=== PATIENT | male | born 1945 | race Caucasian/White ===

== ENCOUNTER 2019-12-22 09:07 | Outpatient (CLI) | payer MEDICARE, OTHER, SELFPAY ==
--- NOTE | ~2019-12-22 | CT_ITS ---
EXAMINATION: CT chest wo con DATE: 12/22/2019 09:33 INDICATION: Lung nodule TECHNIQUE: Computed tomography (CT) of the chest was performed without intravenous contrast. The dose -length product (DLP) was 280.27 mGy-cm. Automated exposure control and iterative reconstruction tech [employer] were employed. COMPARISON: 03/27/2019 FINDINGS: The previously described pleural-based nodule of the left upper lobe is no longer evident, consistent with resolved infection or inflammation. There is moderate emphysema. Calcified pleural pl aques are again noted. There is associated rounded atelectasis posteriorly in the left lower lobe. Th ere is no pleural effusion or pneumothorax. No pathologically enlarged thoracic lymph nodes are ident ified. The heart size is normal. There is calcified coronary artery atherosclerosis. Mild bilateral g ynecomastia is noted. The gallbladder is surgically absent. There is thoracic levocurvature and moder ate spondylosis. IMPRESSION: 1. Resolution of the previously described left upper lobe nodule, consistent with resolved infection/ inflammation. 2. 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 3. Moderate emphysema. Reviewed, dictated and finalized at location A. IMPRESSION: 1. Resolution of the previously described left upper lobe nodule, consistent wi th resolved infection/inflammation. 2. 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 3. Moderate emphysema.
== END 2019-12-22 09:08 | disposition home or self-care (01) ==
PROVIDERS: PCP Family Medicine; Visit Provider Family Medicine
DX: R91.1 Solitary pulmonary nodule (principal); J43.9 Emphysema, unspecified; R91.8 Other nonspecific abnormal finding of lung field
CPT/HCPCS: 71250

== ENCOUNTER 2020-03-30 10:49 | Outpatient (CLI) | payer MEDICARE, OTHER, SELFPAY ==
--- NOTE | 2020-03-30 12:00 | NEURO_ITS ---
Impression: # Complains of hand weakness. # Not enough to make a diagnosis of Carpal Tunnel Syndrome. # No ulnar neuropathy. # Normal needle/EMG # Clinical correlation recommended; Higher involvement such as cervical spondylosis needs to be ruled out. Nerve Conduction Studies Anti Sensory Summary Table Stim Site NR Peak (ms) P-T Amp (?V) Site1 Site2 Delta-P (ms) Dist (cm) Abelardo (m/s) Left Median Anti Sensory (2-3nd Digit) Wrist 3.8 32.8 Wrist 2-3nd Digit 3.8 14.0 37 Wrist 3.8 27.3 Wrist 2-3nd Digit 3.8 14.0 37 Right Median Anti Sensory (2-3nd Digit) Wrist 3.5 3.9 Wrist 2-3nd Digit 3.5 14.0 40 Wrist 4.0 34.4 Wrist 2-3nd Digit 3.5 14.0 40 Left Radial Anti Sensory (Base 1st Digit) Wrist 2.8 7.2 Wrist Base 1st Digit 2.8 0.0 Right Radial Anti Sensory (Base 1st Digit) Wrist 3.6 14.8 Wrist Base 1st Digit 3.6 0.0 Left Ulnar Anti Sensory (5th Digit) Wrist 3.1 33.9 Wrist 5th Digit 3.1 14.0 45 Right Ulnar Anti Sensory (5th Digit) Wrist 3.4 11.1 Wrist 5th Digit 3.4 14.0 41 Motor Summary Table Stim Site NR Onset (ms) O-P Amp (mV) Site1 Site2 Delta-0 (ms) Dist (cm) Abelardo (m/s) Left Median Motor (Abd Poll Brev) Wrist 3.5 6.0 Elbow Wrist 6.0 31.0 52 Elbow 9.5 2.3 Right Median Motor (Abd Poll Brev) Wrist 3.4 3.7 Elbow Wrist 6.1 30.0 49 Elbow 9.5 3.7 Left Ulnar Motor (Abd Dig Minimi) Wrist 3.2 4.8 A Elbow Wrist 5.9 31.0 53 A Elbow 9.1 3.5 Right Ulnar Motor (Abd Dig Minimi) Wrist 3.0 5.2 A Elbow Wrist 6.3 32.0 51 A Elbow 9.3 4.8 F Wave Studies NR F-Lat (ms) L-R F-Lat (ms) Left Median (Mrkrs) (Abd Poll Brev) 32.73 0.47 Right Median (Mrkrs) (Abd Poll Brev) 32.27 0.47 Left Ulnar (Mrkrs) (Abd Dig Min) 31.83 1.98 Right Ulnar (Mrkrs) (Abd Dig Min) 33.81 1.98 EMG Side Muscle Nerve Root Ins Act Fibs Amp Dur Recrt Comment Right 1stDorInt Ulnar C8-T1 Nml Nml Nml Nml Nml Right Ext Indicis Radial (Post Int) C7-8 Nml Nml Nml Nml Nml Right Ext Digitorum Radial (Post Int) C7-8 Nml Nml Nml Nml Nml Right BrachioRad Radial C5-6 Nml Nml Nml Nml Nml Right PronatorTeres Median C6-7 Nml Nml Nml Nml Nml Right Abd Poll Brev Median C8-T1 Nml Nml Nml Nml Nml Left 1stDorInt Ulnar C8-T1 Nml Nml Nml Nml Nml Left Ext Indicis Radial (Post Int) C7-8 Nml Nml Nml Nml Nml Left Ext Digitorum Radial (Post Int) C7-8 Nml Nml Nml Nml Nml Left BrachioRad Radial C5-6 Nml Nml Nml Nml Nml Left PronatorTeres Median C6-7 Nml Nml Nml Nml Nml Left Abd Poll Brev Median C8-T1 Nml Nml Nml Nml Nml MTDD
== END 2020-03-30 10:50 | disposition home or self-care (01) ==
PROVIDERS: Visit Provider Psychiatry & Neurology Neurology
DX: G56.02 Carpal tunnel syndrome, left upper limb (principal)
CPT/HCPCS: 95886; 95911

== ENCOUNTER 2020-04-29 15:37 | Emergency (ER) | payer MEDICARE, OTHER, SELFPAY ==
--- NOTE | ~2020-04-29 | CT_ITS ---
EXAMINATION: CT brain wo con INDICATION: Increasing confusion, transient alteration of awareness COMPARISON: None TECHNIQUE: Standard unenhanced head CT. The dose-length product (DLP) was 605.33 mGy-cm. The mA was a djusted according to patient size. Iterative reconstruction technique was employed. FINDINGS: There is no acute intraparenchymal hemorrhage. No evidence of mass lesion. No evidence of a cute infarction. There is mild periventricular and subcortical hypodensity probably related to small vessel ischemic disease. There is mild prominence of the sulci and ventricles related to cerebral atr ophy. Intracranial calcified cerebral atherosclerosis is noted. There are no extra-axial collections. There is no mass effect or midline shift. Changes in the globes are likely from ocular lens surgery. The visualized sinuses and mastoid air cells are well aerated. IMPRESSION: 1. No acute intracranial abnormality. 2. Age related findings. Reviewed, dictated and finalized at location A. TRONIC ASSEMBLER GROUP LEADER
--- NOTE | ~2020-04-29 | XR_ITS ---
EXAMINATION: XR chest 1V portable INDICATION: Transient alteration of awareness TECHNIQUE: Portable AP chest at 1701 hours COMPARISON: 11/10/2018 FINDINGS: The lungs are free of acute opacities. Ill-defined densities projecting in the left hemitho rax are consistent with calcified pleural plaques seen on prior cross-sectional imaging. There is no pleural effusion or pneumothorax. The cardiomediastinal silhouette is normal. IMPRESSION: 1. No acute cardiopulmonary abnormality. Reviewed, dictated and finalized at location A. MDS COORDINATOR
[2020-04-29 15:44] VITALS: BP 173/78; PULSE 84; RESP 18; TEMP 36.9; O2SAT 98
--- NOTE | 2020-04-29 15:44 | ECG_ITS ---
Measurements Intervals [place] Rate: 81 P: 75 MN: 163 QRS: 70 QRSD: 104 T: 81 QT: 399 QTc: 463 Interpretive Statements SINUS RHYTHM VENTRICULAR PREMATURE COMPLEX POSSIBLE LEFT ATRIAL ENLARGEMENT NONSPECIFIC ST & T-WAVE ABNORMALITY- DIFFUSE LEADS BASELINE ARTIFACT- I, III, AVR, AVL, V6 BORDERLINE ECG Electronically Signed On 04-29-2020 16:15:49 IC DESIGNER CUSTOM by Olman Brizuela D.O.
[2020-04-29 16:15] LABS: Basophils Percent Auto 0.2 % (0.2-1.2); Eosinophils Percent Auto 0.2 % (0-4.4); Hematocrit 33.7 % (42.0-52.0); Hemoglobin 11.3 g/dL (14.0-18.0); Immature Granulocyte Absolute 0.01 K/mm3 (0.00-0.031); Immature Granulocyte Percent A 0.2 % (0-0.5); Lymphocytes Percent Auto 23.4 % (18.3-44.2); Mean Corpuscular HGB Conc 33.5 g/dl (32-36); Mean Corpuscular Hemoglobin 31.6 pg (26-34); Mean Corpuscular Volume 94.1 fl (80-100); Mean Platelet Volume 9.3 fl (7.4-10.4); Monocytes Absolute Auto 0.6 K/mm3 (0.1-0.6); Monocytes Percent Auto 13.4 % (2.6-8.5); Neutrophils Absolute Auto 2.9 K/mm3 (1.3-6.7); Neutrophils Percent Auto 62.6 % (45.5-73.1); Platelet Count Result 232 k/mm3 (150-375); Red Blood Count 3.58 M/mm3 (4.6-6.20); White Blood Count 4.7 K/mm3 (4.5-10.0)
[2020-04-29 16:32] LABS: Alanine Aminotransferase 40 U/L (4-50); Albumin Level 3.7 g/dL (3.5-5.1); Alkaline Phosphatase 147 U/L (38-126); Anion Gap 8 mmol/L (8-16); Aspartate Amino Transferase 63 U/L (17-59); Bilirubin,Total 0.4 mg/dL (0.2-1.3); Blood Urea Nitrogen 19 mg/dL (9-20); Calcium 8.6 mg/dL (8.4-10.2); Carbon Dioxide 25 mmol/L (22-30); Chloride 102 mmol/L (98-107); Estimated CRCL calculation 82 ml/min; Estimated Glomerular Filt Rate > 60; Glucose 104 mg/dL (75-110); Potassium 3.7 mmol/L (3.4-5.0); Sodium 135 mmol/L (137-145)
--- NOTE | 2020-04-29 17:00 | ED.AMS ---
HPI - Altered Mental Status General Chief Complaint: Altered Mental Status Stated Complaint: confusion Time Seen by Provider: 04/29/20 16:09 Source: patient and family Mode of arrival: ambulatory Limitations: no limitations History of Present Illness HPI narrative: Patient is a 74-year-old male who presents with noting that over the recent weeks he has been having periods of dizziness and slightly more confused patient was advised to discontinue his carbo levodopa which she takes for his Parkinson's and is followed by neurology patient has been off of this for the last 4 days patient denies any recent illness injury or trauma on arrival is in the room in no distress and is alert and oriented x3. Patient denying any pain Related Data Home Medications Medication Instructions Recorded Confirmed albuterol sulfate 90 mcg/actuation See Rx Instructions .ROUTE .COMPLEX 04/18/20 aerosol inhaler atorvastatin 10 mg tablet 10 mg PO DAILY 04/18/20 carbidopa 25 mg-levodopa 100 mg 1 tablet PO TID 04/18/20 tablet linaclotide 145 mcg capsule 145 mcg PO DAILY 04/18/20 mesalamine 0.375 gram See Rx Instructions PO QAM 04/18/20 capsule,extended release 24 hr Allergies Allergy/AdvReac Type Severity Reaction Status Date / Time Penicillins Allergy Intermediate UNKNOWN Verified 04/29/20 17:32 Review of Systems Review of Systems: All systems reviewed & are unremarkable except as noted in HPI and below PMFSH Past Medical History Medical History (Updated 04/29/20 @ 19:07 by Leonides Lofton PA-C) Chicken pox Parkinson disease Pneumonia Screening PSA (prostate specific antigen) Surgical History Surgical History H/O right heart catheterization History of cholecystectomy Family History Family History Father , 68 Stomach cancer Mother , 90 No problems noted. Social History Social History Smoking packs per day: 1.0 Smoking cigarettes per day: 20.0 Smoking status: Former smoker Smoking end date: 03/18/04 Alcohol intake: current Substance use: never Substance use type: does not use Gender identity (if verbalized by the patient): Male Exam Narrative: Exam Narrative: GENERAL: Well-appearing, well-nourished, and in no acute distress. HEAD: Normocephalic, atraumatic. EYES: PERRLA and EOMI. ENT: Nares clear, no rhinorrhea or epistaxis. Mucous membranes moist. CHEST: Clear to auscultation. No respiratory distress. No wheezes rales or rhonchi HEART: Regular rate and rhythm. No murmur heard. Normal peripheral pulses. ABDOMEN: Soft, nontender, nondistended, EXTREMITIES: Normal range of motion. No edema. SKIN: Warm, dry, no rash. NEURO: No focal deficits. Alert and oriented x3. Cranial nerves II through XII grossly intact. Normal speech. Able to ambulate without difficulty PSYCH: Normal mood and affect. Course Course Emergency Course: Patient aware of case findings treatment plan diagnosis evaluated in the emergency department will be discharged home and feels comfortable to go home as does his discussion was made with neurology as this likely could be related to his medication changes ablate patient has been advised by neurology to contact him on Saturday for follow-up in clinic Consultations Consultation #1: Discussed case with neurologist Dr. Johnson who will follow with the patient on Saturday Date: 04/29/20 Time: 19:07 Vital Signs Vital signs: Vital Signs Temperature 98.4 F 04/29/20 15:44 Pulse Rate 84 04/29/20 15:44 Respiratory Rate 18 04/29/20 15:44 Blood Pressure 173/78 H 04/29/20 15:44 Pulse Oximetry 98 04/29/20 15:44 Temperature 98.4 F 04/29/20 15:44 Pulse Rate 84 04/29/20 15:44 Respiratory Rate 18 04/29/20 15:44 Blood Pressure 173/78 H 04/29/20 15:44 Pulse O
[2020-04-29] MEDS: SODIUM CHLORIDE 0.9% IV 500 ML 999 ML IV CONT (17:18)
[2020-04-29 18:07] LABS: Add Urine Microscopic? YES; Appearance Urine Clear (Clear); Bacteria Urine Trace /hpf; Bilirubin Urine Negative (Negative); Blood Urine 2+ (Negative); Color Urine Yellow (Yellow); Glucose Urine UA Negative (Negative); Ketones Urine Trace mg/dL (Negative); Leukocyte Esterase Ur Negative LEU/UL (Negative); Mucus Urine Rare /lpf; Nitrate Urine Negative (Negative); Protein Urine 1+ mg/dL (Negative); RBC Urine >75 /hpf (0-2); Specific Grav Ur 1.029 (1.001-1.035); Squamous Epithelial Cell Urine Rare /hpf (Few)
[2020-04-29 19:39] VITALS: BP 125/90; PULSE 90; RESP 16
== END 2020-04-29 19:39 | disposition home or self-care (01) ==
PROVIDERS: Emergency Provider Emergency Medicine; PCP Emergency Medicine
DX: R41.0 Disorientation, unspecified (principal); R31.9 Hematuria, unspecified; G20 Parkinson's disease; Z87.891 Personal history of nicotine dependence; I49.3 Ventricular premature depolarization; R94.31 Abnormal electrocardiogram [ECG] [EKG]
CPT/HCPCS: 36415; 70450; 71045; 80053; 81001; 85025; 93005; 96360; 99284; J7040

== ENCOUNTER 2020-05-01 15:21 | Inpatient (IN) | payer MEDICARE, OTHER, SELFPAY ==
[2020-05-01] VITALS (19 sets, daily range): BP systolic 140–168; BP diastolic 71–110; PULSE 64–98; RESP 13–22; TEMP 36.4–36.8; O2SAT 94–99; BMI 26.3
--- NOTE | ~2020-05-01 | XR_ITS ---
EXAMINATION: XR ankle LT min 3V DATE: 05/01/2020 18:10 INDICATION: Left ankle swelling TECHNIQUE: Anteroposterior, oblique, mortise, and lateral views of the left ankle were obtained. COMPARISON: None. FINDINGS: Alignment is normal. No fracture. Joint spaces are well maintained. No ankle joint effusion. Small Achilles calcaneal spur. Mild soft tissue swelling along the anteromedial aspect of the left ankle. IMPRESSION: 1. No acute osseous abnormality. Reviewed, dictated and finalized at location A.
--- NOTE | ~2020-05-01 | US_ITS ---
EXAMINATION: US venous doppler [facility] DATE: 05/02/2020 09:51 INDICATION: Left lower limb swelling TECHNIQUE: Cain scale images without and with compression and Doppler images of the left lower extrem ity veins were obtained. COMPARISON: None FINDINGS: The left common femoral vein, profunda femoral vein, femoral vein, popliteal vein, peroneal trunk, posterior tibial veins, and greater saphenous vein are patent. IMPRESSION: 1. Patent left lower extremity veins. No evidence of deep venous thrombosis. Reviewed, dictated and finalized at location A. OYEE BENEFITS COORDINATOR
--- NOTE | ~2020-05-01 | CT_ITS ---
EXAMINATION: CTA chest PE protocol DATE: 05/01/2020 16:48 INDICATION: Shortness of breath TECHNIQUE: Computed tomography (CT) pulmonary angiogram of the chest was performed with 100 mL Omnipa que-350 intravenous contrast. Additional 3D reconstructions utilizing coronal maximum intensity proje ction (MIP) were performed. Automated exposure control and iterative reconstruction technique were em ployed. The dose-length product was 447.27 mGy-cm. COMPARISON: Chest CT dated 12/22/2019 FINDINGS: Good contrast opacification of the pulmonary arteries. There is moderate streak artifact from dense c ontrast in the superior vena cava and right atrium. There are scattered motion artifact mild to moder ate knee mid and upper lung zones and severe at the lung bases where it significantly decreases sensi tivity in the segmental and subsegmental pulmonary arteries. No definitive pulmonary embolism. Mild t o moderate bilateral emphysema. Bilateral calcified pleural plaques suggestive of prior asbestos expo sure. Chronic peripheral curved bands of opacity with architectural distortion in the dependent left lower lobe consistent with round atelectasis. There are new groundglass opacities in the lingula, rig ht lower lobe and most prominently in the basilar segments of the left lower lobe. No pleural effusio n or pneumothorax. A few scattered small calcified pulmonary nodules along with calcified calcified r ight bronchial lymph nodes consistent with old granulomatous disease. Consistent with old granulomato us disease. Heart size is normal. Atherosclerotic coronary artery calcifications. No pericardial effu diana. Aortic valve calcification. Thoracic aorta is normal in caliber with no dissection. There is approximately 4.3 x 3.7 x 3.4 cm soft tissue density mass with ill-defined margins filling t he AP window. Left hilar lymphadenopathy including a 2.7 x 1.9 cm lymph node. There is also been incr ease in size of a subcarinal lymph node previously measuring 9 mm AP, currently 1.7 cm AP. Soft tissu e density/lymphadenopathy at the mediastinum and left hilum appear increased in size since the prior study. Significantly increased in size since the prior study and raises concern for metastatic diseas e. Cholecystectomy clips at the gallbladder fossa. Mild bilateral gynecomastia. Upper thoracic levosc oliosis. There are bridging osteophytes at multiple levels in the spine, consistent with diffuse idio pathic skeletal hyperostosis (DISH). IMPRESSION: 1. No pulmonary embolism. Evaluation significantly limited in the basilar segmental and subsegmental pulmonary arteries to primarily to motion. 2. New groundglass opacities in the lingula, right lower lobe and most prominently with patchy appear ance in the left lower lobe raising concern for pneumonia with differential including COVID pneumonia . Differential includes atelectasis or mild pulmonary edema. 3. Enlarging mass likely conglomeration of lymph nodes in the AP window with poorly defined margins a s well as enlarging left hilar and subcarinal lymphadenopathy which raises concern for metastatic dis ease of indeterminate primary. When clinically improved could consider PET/CT to assess for possible primary lesion or other lesions suspicious for metastatic disease more minimal to percutaneous biopsy . 4. Mild to moderate emphysema. 5. Bilateral calcified pleural plaques consistent with prior asbestos exposure with chronic round ate lectasis at the periphery of the left lower lobe. Reviewed, dictated and finalized at location A. PLANT ENGINEER IMPRESSION: 1. No pulmonary embolism. Evaluation significantly limited in the basilar segme ntal and subsegmental pulmonary arteries to primarily to motion. 2. New groundglass opacities in the lingula, right lower lobe and most prominen
--- NOTE | 2020-05-01 15:42 | ED.GENADULT ---
HPI - General Adult General Chief complaint: Altered Mental Status Stated complaint: ongoing confusion Time Seen by Provider: 05/01/20 15:26 Source: patient, family and old records reviewed Mode of arrival: ambulatory Limitations: no limitations History of Present Illness HPI narrative: Patient is a 74-year-old male who returns to emergency department for evaluation of continued unsteadiness that has been present now for several days patient seen yesterday in the emergency department discharged home returns with the patient noted that he was uncomfortable throughout the night and has now noticed that he has left lower extremity swelling patient on arrival is in the room no complaints denies any recent injury or trauma. Patient was uncomfortable through the night complained of pain across the upper back is currently not complaining of this pain. Related Data Home Medications Medication Instructions Recorded Confirmed albuterol sulfate 90 mcg/actuation See Rx Instructions .ROUTE .COMPLEX 04/18/20 aerosol inhaler atorvastatin 10 mg tablet 10 mg PO DAILY 04/18/20 carbidopa 25 mg-levodopa 100 mg 1 tablet PO TID 04/18/20 tablet linaclotide 145 mcg capsule 145 mcg PO DAILY 04/18/20 mesalamine 0.375 gram See Rx Instructions PO QAM 04/18/20 capsule,extended release 24 hr Allergies Allergy/AdvReac Type Severity Reaction Status Date / Time Penicillins Allergy Intermediate UNKNOWN Verified 05/01/20 15:29 Review of Systems Review of Systems: All systems reviewed & are unremarkable except as noted in HPI and below PMFSH Past Medical History Medical History Chicken pox Parkinson disease Pneumonia Screening PSA (prostate specific antigen) Surgical History Surgical History H/O right heart catheterization History of cholecystectomy Family History Family History Father , 68 Stomach cancer Mother , 90 No problems noted. Social History Social History Smoking packs per day: 1.0 Smoking cigarettes per day: 20.0 Smoking status: Former smoker Smoking end date: 03/18/04 Alcohol intake: current Substance use: never Substance use type: does not use Gender identity (if verbalized by the patient): Male Exam Narrative: Exam Narrative: GENERAL: Well-appearing, well-nourished, and in no acute distress. HEAD: Normocephalic, atraumatic. EYES: PERRLA and EOMI. ENT: Nares clear, no rhinorrhea or epistaxis. Mucous membranes moist. NECK: Supple. No adenopathy or masses. CHEST: Clear to auscultation. No respiratory distress. No wheezes rales or rhonchi HEART: Regular rate and rhythm. No murmur heard. Normal peripheral pulses. ABDOMEN: Soft, nontender, nondistended EXTREMITIES: Normal range of motion. 2+ edema of the left lower extremity at the level of the ankle no erythema or other abnormalities no calf tenderness SKIN: Warm, dry, no rash. NEURO: No focal deficits. Alert and oriented x3. Unsteady gait. Cranial nerves II through XII grossly intact PSYCH: Normal mood and affect. Course Course Emergency Course: Patient presented with vague complaints of worsening confusion over the last week unsteady gait also complaining of pain in the upper back at home not complaining of this in the ER patient was evaluated found to have what appears to be pneumonialike findings on his CAT scan no pulmonary embolus patient will be placed in hospital to be evaluated by his neurologist managed by the hospitalist team patient at this time felt appropriate for inpatient evaluation given his multiple visits patient in the room in no distress at this time will be tested for Covid given the CT findings will be treated for pneumonia in the meantime Consultations Consultation #1:
--- NOTE | 2020-05-01 16:00 | ECG_ITS ---
Measurements Intervals [place] Rate: 82 P: 88 UT: 178 QRS: 85 QRSD: 113 T: 105 QT: 407 QTc: 478 Interpretive Statements SINUS RHYTHM INTRAVENTRICULAR CONDUCTION DELAY BORDERLINE ST-T WAVE ABNORMALITY- ANTEROLAT/INF LEADS BASELINE ARTIFACT- I, III, AVR, AVL, AVF, V1-V6 BORDERLINE ECG Electronically Signed On 05-01-2020 19:56:39 FRYER LINE HELPER by Olman Brizuela D.O.
[2020-05-01 16:14] LABS: Basophils Percent Auto 0.2 % (0.2-1.2); Eosinophils Percent Auto 0.6 % (0-4.4); Hematocrit 34.8 % (42.0-52.0); Hemoglobin 11.6 g/dL (14.0-18.0); Immature Granulocyte Absolute 0.02 K/mm3 (0.00-0.031); Immature Granulocyte Percent A 0.4 % (0-0.5); Lymphocytes Absolute Auto 1.45 K/mm3 (0.9-3.2); Lymphocytes Percent Auto 28.4 % (18.3-44.2); Mean Corpuscular HGB Conc 33.3 g/dl (32-36); Mean Corpuscular Hemoglobin 31.6 pg (26-34); Mean Corpuscular Volume 94.8 fl (80-100); Mean Platelet Volume 9.6 fl (7.4-10.4); Monocytes Absolute Auto 0.7 K/mm3 (0.1-0.6); Monocytes Percent Auto 14.3 % (2.6-8.5); Neutrophils Absolute Auto 2.9 K/mm3 (1.3-6.7); Neutrophils Percent Auto 56.1 % (45.5-73.1); Platelet Count Result 269 k/mm3 (150-375); Red Blood Count 3.67 M/mm3 (4.6-6.20); Red Cell Distribution Width 13.2 % (11.5-14.5); White Blood Count 5.1 K/mm3 (4.5-10.0)
[2020-05-01 16:18] LABS: Add Urine Microscopic? YES; Appearance Urine Clear (Clear); Bilirubin Urine Negative (Negative); Blood Urine Negative (Negative); Color Urine Yellow (Yellow); Glucose Urine UA Negative (Negative); Ketones Urine Negative (Negative); Leukocyte Esterase Ur Negative LEU/UL (Negative); Mucus Urine Rare /lpf; Nitrate Urine Negative (Negative); Protein Urine 1+ mg/dL (Negative); RBC Urine 21-50 /hpf (0-2); Specific Grav Ur 1.025 (1.001-1.035); Squamous Epithelial Cell Urine Rare /hpf (Few)
[2020-05-01 16:23] LABS: INR 0.9; Prothrombin Time 12.4 Seconds (11.1-14.7)
[2020-05-01 16:24] LABS: Partial Thromboplastin Time 35.5 SECONDS (22.3-36.8)
[2020-05-01 16:26] LABS: D Dimer 0.82 ug/mL (<0.48)
[2020-05-01 16:28] LABS: Alanine Aminotransferase 45 U/L (4-50); Albumin Level 3.8 g/dL (3.5-5.1); Alkaline Phosphatase 164 U/L (38-126); Anion Gap 6 mmol/L (8-16); Aspartate Amino Transferase 61 U/L (17-59); Bilirubin,Total 0.4 mg/dL (0.2-1.3); Blood Urea Nitrogen 18 mg/dL (9-20); Calcium 8.4 mg/dL (8.4-10.2); Carbon Dioxide 25 mmol/L (22-30); Chloride 105 mmol/L (98-107); Estimated CRCL calculation 93 ml/min; Estimated Glomerular Filt Rate > 60; Glucose 105 mg/dL (75-110); Lipase 96 U/L (23-300); Potassium 3.8 mmol/L (3.4-5.0); Sodium 136 mmol/L (137-145)
[2020-05-01 16:39] LABS: NT Pro B Type Natriuretic Pept 510 PG/ML (5-100); Troponin I < 0.012 ng/mL (0.000-0.034)
[2020-05-01] MEDS: SODIUM CHLORIDE 0.9% IV 500 ML 999 ML IV CONT (17:12)
--- NOTE | 2020-05-01 20:39 | ADMGEN ---
At 2014,This patient, Edi Hooks, was admitted to [address] [place] [address] Room 332-01. Patient/family oriented to hospital policies and general routines including ID bracelet, bed and alarms, visiting hours, pain management, procedures, bathroom and other care routines, personal items, smoking policy, room service/diet, and visiting hours. Information on how to activate the Rapid Response Team has been discussed. Patient/Family are encouraged to report perceived risks to care and to ask questions if they do not understand what they are told or what they should do.
[2020-05-01] MEDS: LORazepam INJ (*CRX) 2 MG/ML VIAL 0.5 MG IV PUSH (21:58)
[2020-05-01] MEDS: FAMOTIDINE 20 MG/2 ML VIAL IV PUSH (21:59)
[2020-05-01] MEDS: WATER, STERILE FOR INJECTION 10 ML VIAL XX (23:48)
[2020-05-01] MEDS: OLANZapine 10 MG INJ VIAL 5 MG IM (23:48)
[2020-05-02] VITALS (9 sets, daily range): BP systolic 103–151; BP diastolic 72–98; PULSE 68–101; RESP 16–22; TEMP 36.6–37.4; O2SAT 95–100
--- NOTE | 2020-05-02 00:27 | PM.IMHP ---
H&P: HPI History of Present Illness Date/Time: 05/02/20 00:27 Chief Complaint: unsteadiness Narrative: This is a 74 year old male with known Parkinson's disease who presented to the ER yesterday for a return visit for unsteadiness. Apparently the patient's reported that he was uncomfortable throughout the night with swelling of his LLE. The patient was evaluated in the ER and routine labs were virtually unremarkable. CTA chest was performed which demonstrated new groundglass opacities in the lingula, right lower lobe and most prominently with patchy appearance in the left lower lobe as well as emphysema. The patient has not required any oxygen supplementation and nursing staff alerts me that the patient has not had any fevers or coughing. Prior to my encounter with the patient tonight he was treated with zyprexa 5 mg IM as he was agitated and trying to get out of his bed. On my encounter with the patient he is medicated and very somnolent. He cannot answer any of my questions and no further history is obtainable. Review of Systems Review of Systems: ROS unobtainable: Yes unobtainable due to mental status PMFSH Past Medical History Medical History Chicken pox Parkinson disease Pneumonia Screening PSA (prostate specific antigen) Surgical History Surgical History H/O right heart catheterization History of cholecystectomy Family History Family History Father , 68 Stomach cancer Mother , 90 No problems noted. Social History Social History Smoking packs per day: 1.0 Smoking cigarettes per day: 20.0 Smoking status: Former smoker Tobacco type: cigarettes Second hand tobacco smoke exposure: No Smoking end date: 03/18/04 Alcohol intake: former Substance use: never Substance use type: does not use Last use: STATES HE QUICK DRINKING 2 MONTHS AGO. Gender identity (if verbalized by the patient): Male Spiritual care concerns: No Meds Home Medications and Allergies Home Medications Medication Instructions Recorded Confirmed Type albuterol sulfate 90 mcg/actuation See Rx Instructions .ROUTE .COMPLEX 04/18/20 05/01/20 History aerosol inhaler atorvastatin 10 mg tablet 10 mg PO DAILY 04/18/20 05/01/20 History carbidopa 25 mg-levodopa 100 mg 1 tablet PO TID 04/18/20 05/01/20 History tablet linaclotide 145 mcg capsule 145 mcg PO DAILY 04/18/20 05/01/20 History mesalamine 0.375 gram See Rx Instructions .ROUTE .COMPLEX 04/18/20 05/01/20 History capsule,extended release 24 hr Allergies Allergy/AdvReac Type Severity Reaction Status Date / Time Penicillins Allergy Intermediate UNKNOWN Verified 05/01/20 15:29 Vital Signs Vital Signs - 24 hr 05/01/20 15:23 05/01/20 16:01 05/01/20 16:31 Temperature 36.8 C Pulse Rate 96 93 89 Respiratory Rate 20 15 17 Blood Pressure 153/78 H 150/94 H 160/89 H Pulse Oximetry 94 97 98 05/01/20 16:51 05/01/20 17:01 05/01/20 17:07 Temperature Pulse Rate 98 94 95 Respiratory Rate 19 17 19 Blood Pressure 160/90 H 140/110 H 152/90 H Pulse Oximetry 99 99 99 05/01/20 17:31 05/01/20 17:35 05/01/20 18:01 Temperature Pulse Rate 79 93 Respiratory Rate 13 18 15 Blood Pressure 156/84 H 150/71 H Pulse Oximetry 97 98 05/01/20 18:32 05/01/20 18:45 05/01/20 19:00 Temperature Pulse Rate 98 92 81 Respiratory Rate 20 22 H 18 Blood Pressure 168/88 H Pulse Oximetry 94 99 05/01/20 19:01 05/01/20 19:15 05/01/20 19:30 Temperature Pulse Rate 81 98 93 Respiratory Rate 17 22 H 21 H Blood Pressure 147/72 H Pulse Oximetry 97 05/01/20 19:31 05/01/20 19:54 05/01/20 20:00 Temperature 36.6 C Pulse Rate 91 89 79 Respiratory Rate 15 17 18 Blood Pressure 145/94 H 149/90 H Puls
--- NOTE | 2020-05-02 01:46 | PC.NURSE ---
05/01/2020 2158 PT IS VERY RESTLESS. NOT FOLLOWING COMMANDS WELL. INCREASED TREMOR/PILL ROLLING MOTION. SLIGHTLY AGITATED. ATIVAN 0.5MG GIVEN ORDERED.
--- NOTE | 2020-05-02 01:49 | PC.NURSE ---
05/01/2020 AT 2351 PT REMAINS RESTLESS AND UNSTEADY WHEN UP. NOT FOLLOWING COMMANDS. SPOKE WITH GEORGE MOREL CAN PUSHER ONE TIME ORDER FOR 5MG ZYPREXA IM. MED GIVEN ORDERED.
[2020-05-02 06:40] LABS: Basophils Percent Auto 0.2 % (0.2-1.2); Eosinophils Absolute Auto 0.1 K/mm3 (0-0.3); Eosinophils Percent Auto 0.9 % (0-4.4); Hematocrit 35.9 % (42.0-52.0); Hemoglobin 11.8 g/dL (14.0-18.0); Immature Granulocyte Absolute 0.03 K/mm3 (0.00-0.031); Immature Granulocyte Percent A 0.5 % (0-0.5); Lymphocytes Absolute Auto 1.37 K/mm3 (0.9-3.2); Lymphocytes Percent Auto 21.6 % (18.3-44.2); Mean Corpuscular HGB Conc 32.9 g/dl (32-36); Mean Corpuscular Hemoglobin 31.2 pg (26-34); Mean Platelet Volume 9.5 fl (7.4-10.4); Monocytes Absolute Auto 0.7 K/mm3 (0.1-0.6); Monocytes Percent Auto 10.7 % (2.6-8.5); Neutrophils Absolute Auto 4.2 K/mm3 (1.3-6.7); Neutrophils Percent Auto 66.1 % (45.5-73.1); Platelet Count Result 308 k/mm3 (150-375); Red Blood Count 3.78 M/mm3 (4.6-6.20); Red Cell Distribution Width 13.1 % (11.5-14.5); White Blood Count 6.3 K/mm3 (4.5-10.0)
[2020-05-02 06:50] LABS: Anion Gap 6 mmol/L (8-16); Blood Urea Nitrogen 12 mg/dL (9-20); Calcium 8.2 mg/dL (8.4-10.2); Carbon Dioxide 29 mmol/L (22-30); Chloride 106 mmol/L (98-107); Estimated CRCL calculation 82 ml/min; Estimated Glomerular Filt Rate > 60; Glucose 92 mg/dL (75-110); Potassium 3.4 mmol/L (3.4-5.0); Sodium 141 mmol/L (137-145)
[2020-05-02] MEDS: FAMOTIDINE 20 MG/2 ML VIAL IV PUSH ×2 (09:44→20:35)
[2020-05-02] MEDS: POTASSIUM CHLORIDE 20 MEQ PACKET (FOR LIQUID) 40 MEQ PO (09:44)
[2020-05-02] MEDS: ENOXAPARIN 40 MG/0.4 ML SYRINGE SUB-Q (10:27)
--- NOTE | 2020-05-02 10:47 | PM.IMPN ---
Progress Note: A&P Assessment and Plan (1) Unsteadiness: Code(s): R26.81 - Unsteadiness on feet Status: Acute Assessment and Plan: 05/02/20 10:47 Patient is 74-year-old male with history of Parkinson's disease he was brought to the emergency department by his with a complaint unsteady gait unfortunate patient is a poor historian unable to provide any history or review of symptoms, was also concern the patient with lower extremity edema, CTA chest showed No pulmonary embolism. However it showed new groundglass opacities in the lingula, right lower lobe and most prominently with patchy appearance in the left lower lobe raising concern for pneumonia with differential including COVID pneumonia. Differential includes atelectasis or mild pulmonary edema. Patient is being tested for COVID-19, and placed under isolation, patient was quite agitated last night he was given Zyprexa still somewhat somnolent. a sitter is present. Will await results of COVID-19 and further recommendation to follow, Will continue to monitor once clinically stable (2) Pneumonia: Qualifiers: Laterality: bilateral Lung location: lower lobe of lung Pneumonia type: due to unspecified organism Qualified Code(s): J18.9 - Pneumonia, unspecified organism Code(s): J18.9 - Pneumonia, unspecified organism Status: Acute Assessment and Plan: Awaiting COVID-19 results being isolated (3) Left leg swelling: Code(s): M79.89 - Other specified soft tissue disorders Status: Acute Assessment and Plan: Patent left lower extremity veins. No evidence of deep venous thrombosis. (4) Suspected 2019 novel coronavirus infection: Code(s): Z20.822 - Contact with and (suspected) exposure to COVID-19 Status: Acute Assessment and Plan: Plan is above (5) HLD (hyperlipidemia): Qualifiers: Hyperlipidemia type: mixed hyperlipidemia Qualified Code(s): E78.2 - Mixed hyperlipidemia Code(s): E78.5 - Hyperlipidemia, unspecified Status: Acute Assessment and Plan: Will continue home regimen (6) Parkinson disease: Code(s): G20 - Parkinson's disease Status: Chronic Assessment and Plan: Continue home regimen have PT OT evaluate Additional Plan Date of service was 05/02/2020 at 00:30 hrs Subjective Date/time seen: 05/02/20 10:47 Patient is 74-year-old male with history of Parkinson's disease he was brought to the emergency department by his with a complaint unsteady gait unfortunate patient is a poor historian unable to provide any history or review of symptoms, was also concern the patient with lower extremity edema, CTA chest showed No pulmonary embolism. However it showed new groundglass opacities in the lingula, right lower lobe and most prominently with patchy appearance in the left lower lobe raising concern for pneumonia with differential including COVID pneumonia. Differential includes atelectasis or mild pulmonary edema. Patient is being tested for COVID-19, and placed under isolation, patient was quite agitated last night he was given Zyprexa still somewhat somnolent. a sitter is present. Will await results of COVID-19 and further recommendation to follow, Will continue to monitor once clinically stable Review of Systems Review of Systems: ROS unobtainable: Yes unobtainable due to medical condition Exam Narrative: Exam Narrative: Elderly frail Patient is comfortable, NAD HEENT: eyes are clear and none icteric LUNGS: Normal respiratory effort ABD: Not distended Lower extremities: no edema SKIN: nonjaundiced Neuro: grossly intact slow speech confused. Objective Data Vital Signs Vital Signs: Vital Signs - 24 hr 05/01/20 15:23 05/01/20 16:01 05/01/20 16:31 Temperature 98.2 F Pulse Rate 96 93 89 Respiratory Rate 20 15 17 Blood Pressure 153/78 H 150/94 H 160/89 H Pulse Oximetry 94 97 98 05/01/20 16:51 05/01/20 17:01 05/01
--- NOTE | 2020-05-02 12:45 | WPDNEURCNPN ---
Assessment and Plan Assessment and plan (1) Parkinson disease: Code(s): G20 - Parkinson's disease Status: Chronic (2) Unsteadiness: Code(s): R26.81 - Unsteadiness on feet Status: Acute (3) Acute confusion: Code(s): R41.0 - Disorientation, unspecified Status: Acute (4) Left leg swelling: Code(s): M79.89 - Other specified soft tissue disorders Status: Acute Additional Plan gait dysfunction with ataxia, CT scan of the head without bleed or space-occupying lesion could be related to underlying decrease generalized strength and neuropathy will have the physical therapy evaluation done in a day will obtain the CT scan or MRI of the cervical spine Consult date: 05/02/20 Time Seen: 11:00 HPI: Edi Hooks is a 74 year old male has been admitted to the hospital with the ongoing history of 1. Parkinson's disease 2. Intermittent unsteadiness and 3. Intermittent discomfort particularly in the left lower extremity initial CTA of the chest documented glass opacities in the right lower lobe with patchy appearance in the left lower lobe, reportedly afebrile with no respiratory difficulties and on the night of admission treated with Zyprexa 5 mg. past history consistent with the Parkinson's disease and medications included carbidopa levodopa 25/101 tab 3 times a day, evaluation documented no leukocytosis, mildly anemic ,normal platelet count normal ,electrolyte, pending COVID testing, and negative UA, negative CT of the head ,negative ultrasound venous Doppler study of left lower extremity,patient at present receiving Rocephin 1 g Q 24 hours along with azithromycin Review of Systems Review of Systems: All systems reviewed & are unremarkable except as noted in HPI and below PMFSH Past Medical History Medical History Chicken pox Parkinson disease Pneumonia Screening PSA (prostate specific antigen) Surgical History Surgical History H/O right heart catheterization History of cholecystectomy Family History Family History Father , 68 Stomach cancer Mother , 90 No problems noted. Social History Social History Smoking packs per day: 1.0 Smoking cigarettes per day: 20.0 Smoking status: Former smoker Tobacco type: cigarettes Second hand tobacco smoke exposure: No Smoking end date: 03/18/04 Alcohol intake: former Substance use: never Substance use type: does not use Last use: STATES HE QUICK DRINKING 2 MONTHS AGO. Gender identity (if verbalized by the patient): Male Spiritual care concerns: No Meds Home Medications and Allergies Home Medications Medication Instructions Recorded Confirmed Type albuterol sulfate 90 mcg/actuation See Rx Instructions .ROUTE .COMPLEX 04/18/20 05/01/20 History aerosol inhaler atorvastatin 10 mg tablet 10 mg PO DAILY 04/18/20 05/01/20 History carbidopa 25 mg-levodopa 100 mg 1 tablet PO TID 04/18/20 05/01/20 History tablet linaclotide 145 mcg capsule 145 mcg PO DAILY 04/18/20 05/01/20 History mesalamine 0.375 gram See Rx Instructions .ROUTE .COMPLEX 04/18/20 05/01/20 History capsule,extended release 24 hr Allergies Allergy/AdvReac Type Severity Reaction Status Date / Time Penicillins Allergy Intermediate UNKNOWN Verified 05/01/20 15:29 Vital Signs Vital Signs - 24 hr 05/01/20 15:23 05/01/20 16:01 05/01/20 16:31 Temperature 36.8 C Pulse Rate 96 93 89 Respiratory Rate 20 15 17 Blood Pressure 153/78 H 150/94 H 160/89 H Pulse Oximetry 94 97 98 05/01/20 16:51 05/01/20 17:01 05/01/20 17:07 Temperature Pulse Rate 98 94 95 Respiratory Rate 19 17 19 Blood Pressure 160/90 H 140/110 H 152/90 H Pulse Oximetry 99 99 99 05/01/20 17:31 05/01/20 17:35 05/01/20 18:01 Temperatur
--- NOTE | 2020-05-02 17:31 | PC.NURSE ---
This RN found patient sleeping in bed at 1730 after putting order in for zyprexa. Medication held for now.
[2020-05-02] MEDS: OLANZapine 10 MG INJ VIAL 2.5 MG IM (18:34)
[2020-05-02 19:35] LABS: SARS-CoV-2 RNA PCR Positive
[2020-05-03] VITALS (7 sets, daily range): BP systolic 124–158; BP diastolic 76–92; PULSE 82–105; RESP 18–22; TEMP 36.4–37.2; O2SAT 96–100
[2020-05-03] MEDS: OLANZapine 10 MG INJ VIAL 5 MG IM ×2 (01:20→12:20)
[2020-05-03 06:03] LABS: Hematocrit 36.8 % (42.0-52.0); Hemoglobin 12.2 g/dL (14.0-18.0); Mean Corpuscular HGB Conc 33.2 g/dl (32-36); Mean Corpuscular Hemoglobin 31.1 pg (26-34); Mean Corpuscular Volume 93.9 fl (80-100); Mean Platelet Volume 9.2 fl (7.4-10.4); Platelet Count Result 343 k/mm3 (150-375); Red Blood Count 3.92 M/mm3 (4.6-6.20); White Blood Count 7.6 K/mm3 (4.5-10.0)
[2020-05-03 06:19] LABS: Alanine Aminotransferase 47 U/L (4-50); Albumin Level 3.9 g/dL (3.5-5.1); Alkaline Phosphatase 156 U/L (38-126); Anion Gap 7 mmol/L (8-16); Aspartate Amino Transferase 70 U/L (17-59); Bilirubin,Total 0.6 mg/dL (0.2-1.3); Blood Urea Nitrogen 13 mg/dL (9-20); Calcium 9.1 mg/dL (8.4-10.2); Carbon Dioxide 27 mmol/L (22-30); Chloride 109 mmol/L (98-107); Creatine Kinase 519 U/L (55-170); Estimated CRCL calculation 82 ml/min; Estimated Glomerular Filt Rate > 60; Glucose 96 mg/dL (75-110); Potassium 4.5 mmol/L (3.4-5.0); Sodium 143 mmol/L (137-145)
[2020-05-03] MEDS: ENOXAPARIN 40 MG/0.4 ML SYRINGE SUB-Q ×2 (08:28→22:30)
[2020-05-03] MEDS: FAMOTIDINE 20 MG/2 ML VIAL IV PUSH ×2 (08:28→22:31)
[2020-05-03] MEDS: OLANZapine 10 MG INJ VIAL 2.5 MG IM (08:34)
[2020-05-03] MEDS: ZINC SULFATE 220 MG CAPSULE PO (11:31)
[2020-05-03] MEDS: CHOLECALCIFEROL 1,000 UNITS TABLET 1000 UNITS PO (11:31)
[2020-05-03] MEDS: DEXAMETHASONE SOD PHOS INJ 4 MG/ML VIAL 6 MG IV PUSH (11:31)
[2020-05-03] MEDS: ASCORBIC ACID 500 MG TABLET PO (11:31)
--- NOTE | 2020-05-03 14:09 | PM.IMPN ---
Progress Note: A&P Assessment and Plan (1) Unsteadiness: Code(s): R26.81 - Unsteadiness on feet Status: Acute Assessment and Plan: 05/03/20 14:09 Patient is 74-year-old male with history of Parkinson's disease he was brought to the emergency department by his with a complaint unsteady gait unfortunate patient is a poor historian unable to provide any history or review of symptoms, was also concern the patient with lower extremity edema, CTA chest showed No pulmonary embolism. However it showed new groundglass opacities in the lingula, right lower lobe and most prominently with patchy appearance in the left lower lobe raising concern for pneumonia with differential including COVID pneumonia. Differential includes atelectasis or mild pulmonary edema. Patient is being tested for COVID-19, and placed under isolation, patient was quite agitated last night he was given Zyprexa still somewhat somnolent. a sitter is present. Will await results of COVID-19 and further recommendation to follow, Will continue to monitor once clinically stablle, Patient COVID 19 is positive patient does not have fever and patient is not requring any oxygen started patient on dexamethasone, vitamin C and D, zinc, will continue to monitor further recommendation to follow. Patient with history of Parkinson's apparently his home medication were not resume and patient is restless and agitated, will resume patient's home medical and monitor. Patient with gait dysfunction and ataxia patient was seen by neurologist CT scan of the head did not show any pathology, MRI of the brain is ordered will follow, for PT OT evaluate the patient and further recommendation to follow. (2) Pneumonia: Qualifiers: Laterality: bilateral Lung location: lower lobe of lung Pneumonia type: due to unspecified organism Qualified Code(s): J18.9 - Pneumonia, unspecified organism Code(s): J18.9 - Pneumonia, unspecified organism Status: Acute Assessment and Plan: Awaiting COVID-19 results being isolated (3) Left leg swelling: Code(s): M79.89 - Other specified soft tissue disorders Status: Acute Assessment and Plan: Patent left lower extremity veins. No evidence of deep venous thrombosis. (4) Suspected 2019 novel coronavirus infection: Code(s): Z20.822 - Contact with and (suspected) exposure to COVID-19 Status: Acute Assessment and Plan: Plan is above (5) HLD (hyperlipidemia): Qualifiers: Hyperlipidemia type: mixed hyperlipidemia Qualified Code(s): E78.2 - Mixed hyperlipidemia Code(s): E78.5 - Hyperlipidemia, unspecified Status: Acute Assessment and Plan: Will continue home regimen (6) Parkinson disease: Code(s): G20 - Parkinson's disease Status: Chronic Assessment and Plan: Continue home regimen have PT OT evaluate Subjective Date/time seen: 05/03/20 14:09 Patient is 74-year-old male with history of Parkinson's disease he was brought to the emergency department by his with a complaint unsteady gait unfortunate patient is a poor historian unable to provide any history or review of symptoms, was also concern the patient with lower extremity edema, CTA chest showed No pulmonary embolism. However it showed new groundglass opacities in the lingula, right lower lobe and most prominently with patchy appearance in the left lower lobe raising concern for pneumonia with differential including COVID pneumonia. Differential includes atelectasis or mild pulmonary edema. Patient is being tested for COVID-19, and placed under isolation, patient was quite agitated last night he was given Zyprexa still somewhat somnolent. a sitter is present. Will await results of COVID-19 and further recommendation to follow, Will continue to monitor once clinically stablle, Patient COVID 19 is positive patient does not have fever and patient is not requring any oxygen started pat
[2020-05-03] MEDS: ATORVASTATIN 10 MG TABLET PO (17:27)
[2020-05-03] MEDS: CARBIDOPA/LEVODOPA 25/100 MG TABLET 1 TABLET PO (17:27)
[2020-05-04 03:49] VITALS: BP 141/84; PULSE 102; RESP 20; TEMP 36.5; O2SAT 96
[2020-05-04 06:38] LABS: Hematocrit 36.3 % (42.0-52.0); Mean Corpuscular HGB Conc 33.1 g/dl (32-36); Mean Corpuscular Hemoglobin 31.3 pg (26-34); Mean Corpuscular Volume 94.5 fl (80-100); Mean Platelet Volume 9.5 fl (7.4-10.4); Platelet Count Result 394 k/mm3 (150-375); Red Blood Count 3.84 M/mm3 (4.6-6.20); Red Cell Distribution Width 13.1 % (11.5-14.5); White Blood Count 7.9 K/mm3 (4.5-10.0)
[2020-05-04 06:41] LABS: Alanine Aminotransferase 30 U/L (4-50); Albumin Level 3.9 g/dL (3.5-5.1); Alkaline Phosphatase 148 U/L (38-126); Anion Gap 10 mmol/L (8-16); Aspartate Amino Transferase 71 U/L (17-59); Bilirubin,Total 0.6 mg/dL (0.2-1.3); Blood Urea Nitrogen 22 mg/dL (9-20); Calcium 9.2 mg/dL (8.4-10.2); Carbon Dioxide 26 mmol/L (22-30); Chloride 108 mmol/L (98-107); Estimated CRCL calculation 61 ml/min; Estimated Glomerular Filt Rate > 60; Glucose 131 mg/dL (75-110); Sodium 144 mmol/L (137-145)
[2020-05-04] MEDS: ATORVASTATIN 10 MG TABLET PO (09:18)
[2020-05-04] MEDS: CARBIDOPA/LEVODOPA 25/100 MG TABLET 1 TABLET PO ×3 (09:18→17:18)
[2020-05-04] MEDS: ASCORBIC ACID 500 MG TABLET PO (09:18)
[2020-05-04] MEDS: CHOLECALCIFEROL 1,000 UNITS TABLET 1000 UNITS PO (09:18)
[2020-05-04] MEDS: DEXAMETHASONE SOD PHOS INJ 4 MG/ML VIAL 6 MG IV PUSH (09:18)
[2020-05-04] MEDS: ZINC SULFATE 220 MG CAPSULE PO (09:19)
[2020-05-04] MEDS: FAMOTIDINE 20 MG/2 ML VIAL IV PUSH ×2 (09:19→21:15)
[2020-05-04] MEDS: ENOXAPARIN 40 MG/0.4 ML SYRINGE SUB-Q ×2 (09:19→21:15)
[2020-05-04 10:00] VITALS: BP 132/77; PULSE 106; RESP 20; TEMP 36.3; O2SAT 98
--- NOTE | 2020-05-04 13:47 | PCOTNOTE ---
Attempted OT evaluation this afternoon. Patient in room with sitter and confused. Patient is unable to answer any questions appropriately. In any attempts to have patient work with therapy to sit up or participate in exercise, patient is resistive and rolls over in the bed. Will continue to attempt therapy evaluation as able.
[2020-05-04 14:00] VITALS: BP 112/92; PULSE 107; RESP 18; TEMP 36.3; O2SAT 98
--- NOTE | 2020-05-04 14:15 | PCPTNOTE ---
Patient refusing all therapy treatment this date, will attempt evaluation tomorrow.
--- NOTE | 2020-05-04 16:04 | PM.IMPN ---
Progress Note: A&P Assessment and Plan (1) Unsteadiness: Code(s): R26.81 - Unsteadiness on feet Status: Acute Assessment and Plan: 05/04/20 16:04 Patient is 74-year-old male with history of Parkinson's disease he was brought to the emergency department by his with a complaint unsteady gait unfortunate patient is a poor historian unable to provide any history or review of symptoms, was also concern the patient with lower extremity edema, CTA chest showed No pulmonary embolism. However it showed new groundglass opacities in the lingula, right lower lobe and most prominently with patchy appearance in the left lower lobe raising concern for pneumonia with differential including COVID pneumonia. Differential includes atelectasis or mild pulmonary edema. Patient is being tested for COVID-19, and placed under isolation, patient was quite agitated last night he was given Zyprexa still somewhat somnolent. a sitter is present. Will await results of COVID-19 and further recommendation to follow, Will continue to monitor once clinically stablle, Patient COVID 19 is positive patient does not have fever and patient is not requring any oxygen started patient on dexamethasone, vitamin C and D, zinc, will continue to monitor further recommendation to follow. Patient with history of Parkinson's apparently his home medication were not resume and patient is restless and agitated, will resume patient's home medical and monitor. Patient with gait dysfunction and ataxia patient was seen by neurologist CT scan of the head did not show any pathology, MRI of the brain is ordered will follow, for PT OT evaluate the patient and further recommendation to follow. 05/04 patient is a COVID positive started the patient on dexamethasone, vitamin-C vitamin-D and zinc, patient remains clinically stable in terms of COVID-19 he has no fever and is on room air, however his quite agitated, restless and more confused, have resume patient's home medication, patient is seen by Neurology MRI was ordered the patient was quite agitated and was not able to complete, patient may be benefit going in to SNF, patient is too agitated and confused to participate in physical therapy. (2) Pneumonia: Qualifiers: Laterality: bilateral Lung location: lower lobe of lung Pneumonia type: due to unspecified organism Qualified Code(s): J18.9 - Pneumonia, unspecified organism Code(s): J18.9 - Pneumonia, unspecified organism Status: Acute Assessment and Plan: Awaiting COVID-19 results being isolated (3) Left leg swelling: Code(s): M79.89 - Other specified soft tissue disorders Status: Acute Assessment and Plan: Patent left lower extremity veins. No evidence of deep venous thrombosis. (4) Suspected 2019 novel coronavirus infection: Code(s): Z20.822 - Contact with and (suspected) exposure to COVID-19 Status: Acute Assessment and Plan: Plan is above (5) HLD (hyperlipidemia): Qualifiers: Hyperlipidemia type: mixed hyperlipidemia Qualified Code(s): E78.2 - Mixed hyperlipidemia Code(s): E78.5 - Hyperlipidemia, unspecified Status: Acute Assessment and Plan: Will continue home regimen (6) Parkinson disease: Code(s): G20 - Parkinson's disease Status: Chronic Assessment and Plan: Continue home regimen have PT OT evaluate Subjective Date/time seen: 05/04/20 16:04 Patient is 74-year-old male with history of Parkinson's disease he was brought to the emergency department by his with a complaint unsteady gait unfortunate patient is a poor historian unable to provide any history or review of symptoms, was also concern the patient with lower extremity edema, CTA chest showed No pulmonary embolism. However it showed new groundglass opacities in the lingula, right lower lobe and most prominently with patchy appearance in the left lower lobe raising concern for pneumonia
[2020-05-04 18:00] VITALS: BP 129/88; PULSE 105; RESP 18; TEMP 36.6; O2SAT 99
[2020-05-04 20:00] VITALS: PULSE 105; RESP 18; O2SAT 99
[2020-05-05] MEDS: OLANZapine 10 MG INJ VIAL 5 MG IM (01:21)
[2020-05-05 06:22] LABS: Hematocrit 35.6 % (42.0-52.0); Hemoglobin 11.6 g/dL (14.0-18.0); Mean Corpuscular HGB Conc 32.6 g/dl (32-36); Mean Corpuscular Hemoglobin 30.3 pg (26-34); Mean Platelet Volume 9.4 fl (7.4-10.4); Platelet Count Result 480 k/mm3 (150-375); Red Blood Count 3.83 M/mm3 (4.6-6.20); Red Cell Distribution Width 13.1 % (11.5-14.5); White Blood Count 12.5 K/mm3 (4.5-10.0)
[2020-05-05 06:40] LABS: Alanine Aminotransferase 40 U/L (4-50); Albumin Level 3.7 g/dL (3.5-5.1); Alkaline Phosphatase 135 U/L (38-126); Anion Gap 10 mmol/L (8-16); Aspartate Amino Transferase 95 U/L (17-59); Bilirubin,Total 0.6 mg/dL (0.2-1.3); Blood Urea Nitrogen 39 mg/dL (9-20); Calcium 8.8 mg/dL (8.4-10.2); Carbon Dioxide 24 mmol/L (22-30); Chloride 113 mmol/L (98-107); Estimated CRCL calculation 56 ml/min; Estimated Glomerular Filt Rate 59; Glucose 122 mg/dL (75-110); Potassium 3.9 mmol/L (3.4-5.0); Sodium 147 mmol/L (137-145)
[2020-05-05 07:35] VITALS: BP 144/91; PULSE 102; RESP 18; TEMP 36.7; O2SAT 97
[2020-05-05] MEDS: ASCORBIC ACID 500 MG TABLET PO (08:14)
[2020-05-05] MEDS: CARBIDOPA/LEVODOPA 25/100 MG TABLET 1 TABLET PO ×3 (08:14→17:09)
[2020-05-05] MEDS: ATORVASTATIN 10 MG TABLET PO (08:14)
[2020-05-05] MEDS: FAMOTIDINE 20 MG/2 ML VIAL IV PUSH ×2 (08:15→20:42)
[2020-05-05] MEDS: ENOXAPARIN 40 MG/0.4 ML SYRINGE SUB-Q ×2 (08:15→20:42)
[2020-05-05] MEDS: DEXAMETHASONE SOD PHOS INJ 4 MG/ML VIAL 6 MG IV PUSH (08:15)
[2020-05-05] MEDS: CHOLECALCIFEROL 1,000 UNITS TABLET 1000 UNITS PO (08:15)
[2020-05-05] MEDS: ZINC SULFATE 220 MG CAPSULE PO (08:16)
--- NOTE | 2020-05-05 09:05 | PCOTNOTE ---
Attempted OT evaluation, per RN patient is confused and agitated this morning and to hold therapy until afternoon. Will follow and attempt when appropriate.
--- NOTE | 2020-05-05 10:11 | PCPTNOTE ---
Attempted PT evaluation, per RN patient is confused and agitated this morning and to hold therapy until afternoon. Will follow and attempt when appropriate.
[2020-05-05 11:52] VITALS: BP 121/88; PULSE 102; RESP 18; TEMP 36.4; O2SAT 97
--- NOTE | 2020-05-05 15:48 | PM.IMPN ---
Progress Note: A&P Assessment and Plan (1) Unsteadiness: Code(s): R26.81 - Unsteadiness on feet Status: Acute Assessment and Plan: 05/05/20 15:48 Patient is 74-year-old male with history of Parkinson's disease he was brought to the emergency department by his with a complaint unsteady gait unfortunate patient is a poor historian unable to provide any history or review of symptoms, was also concern the patient with lower extremity edema, CTA chest showed No pulmonary embolism. However it showed new groundglass opacities in the lingula, right lower lobe and most prominently with patchy appearance in the left lower lobe raising concern for pneumonia with differential including COVID pneumonia. Differential includes atelectasis or mild pulmonary edema. Patient is being tested for COVID-19, and placed under isolation, patient was quite agitated last night he was given Zyprexa still somewhat somnolent. a sitter is present. Will await results of COVID-19 and further recommendation to follow, Will continue to monitor once clinically stablle, Patient COVID 19 is positive patient does not have fever and patient is not requring any oxygen started patient on dexamethasone, vitamin C and D, zinc, will continue to monitor further recommendation to follow. Patient with history of Parkinson's apparently his home medication were not resume and patient is restless and agitated, will resume patient's home medical and monitor. Patient with gait dysfunction and ataxia patient was seen by neurologist CT scan of the head did not show any pathology, MRI of the brain is ordered will follow, for PT OT evaluate the patient and further recommendation to follow. 05/04 patient is a COVID positive started the patient on dexamethasone, vitamin-C vitamin-D and zinc, patient remains clinically stable in terms of COVID-19 he has no fever and is on room air, however his quite agitated, restless and more confused, have resume patient's home medication, patient is seen by Neurology MRI was ordered the patient was quite agitated and was not able to complete, patient may be benefit going in to SNF, patient is too agitated and confused to participate in physical therapy. 05/05 patient remains clinically stable is not requiring any oxygen and does not have any fever while in the hospital, patient with history of Parkinson's we have resumed his home medication however patient is quite agitated and restless, patient is clinically stable can be discharged to care home or SNF (2) Pneumonia: Qualifiers: Laterality: bilateral Lung location: lower lobe of lung Pneumonia type: due to unspecified organism Qualified Code(s): J18.9 - Pneumonia, unspecified organism Code(s): J18.9 - Pneumonia, unspecified organism Status: Acute Assessment and Plan: Awaiting COVID-19 results being isolated (3) Left leg swelling: Code(s): M79.89 - Other specified soft tissue disorders Status: Acute Assessment and Plan: Patent left lower extremity veins. No evidence of deep venous thrombosis. (4) Suspected 2019 novel coronavirus infection: Code(s): Z20.822 - Contact with and (suspected) exposure to COVID-19 Status: Acute Assessment and Plan: Plan is above (5) HLD (hyperlipidemia): Qualifiers: Hyperlipidemia type: mixed hyperlipidemia Qualified Code(s): E78.2 - Mixed hyperlipidemia Code(s): E78.5 - Hyperlipidemia, unspecified Status: Acute Assessment and Plan: Will continue home regimen (6) Parkinson disease: Code(s): G20 - Parkinson's disease Status: Chronic Assessment and Plan: Continue home regimen have PT OT evaluate Subjective Date/time seen: 05/05/20 15:48 Patient is 74-year-old male with history of Parkinson's disease he was brought to the emergency department by his with a complaint unsteady gait unfortunate patient is a poor historian unable to provi
[2020-05-05 16:04] VITALS: BP 137/73; PULSE 95; RESP 18; TEMP 36.4; O2SAT 97
[2020-05-05 20:37] VITALS: BP 131/78; PULSE 97; RESP 20; TEMP 36.8; O2SAT 97
[2020-05-06 04:42] VITALS: BP 159/61; PULSE 106; RESP 20; TEMP 37; O2SAT 99
[2020-05-06 06:47] LABS: Hematocrit 37.9 % (42.0-52.0); Mean Corpuscular HGB Conc 31.7 g/dl (32-36); Mean Corpuscular Volume 97.9 fl (80-100); Mean Platelet Volume 9.8 fl (7.4-10.4); Platelet Count Result 448 k/mm3 (150-375); Red Blood Count 3.87 M/mm3 (4.6-6.20); Red Cell Distribution Width 13.4 % (11.5-14.5); White Blood Count 13.5 K/mm3 (4.5-10.0)
[2020-05-06 07:02] LABS: Alanine Aminotransferase 37 U/L (4-50); Albumin Level 3.9 g/dL (3.5-5.1); Alkaline Phosphatase 134 U/L (38-126); Anion Gap 8 mmol/L (8-16); Aspartate Amino Transferase 102 U/L (17-59); Bilirubin,Total 0.7 mg/dL (0.2-1.3); Blood Urea Nitrogen 46 mg/dL (9-20); Carbon Dioxide 24 mmol/L (22-30); Chloride 116 mmol/L (98-107); Estimated CRCL calculation 67 ml/min; Estimated Glomerular Filt Rate > 60; Glucose 113 mg/dL (75-110); Potassium 4.1 mmol/L (3.4-5.0); Sodium 148 mmol/L (137-145)
[2020-05-06 08:00] VITALS: BP 143/51; PULSE 98; RESP 21; TEMP 37.2; O2SAT 95
[2020-05-06] MEDS: FAMOTIDINE 20 MG/2 ML VIAL IV PUSH ×2 (09:42→21:49)
[2020-05-06] MEDS: DEXAMETHASONE SOD PHOS INJ 4 MG/ML VIAL 6 MG IV PUSH (09:42)
[2020-05-06] MEDS: ATORVASTATIN 10 MG TABLET PO (09:43)
[2020-05-06] MEDS: CHOLECALCIFEROL 1,000 UNITS TABLET 1000 UNITS PO (09:43)
[2020-05-06] MEDS: CARBIDOPA/LEVODOPA 25/100 MG TABLET 1 TABLET PO ×2 (09:43→17:25)
[2020-05-06] MEDS: ENOXAPARIN 40 MG/0.4 ML SYRINGE SUB-Q ×2 (09:43→21:49)
[2020-05-06] MEDS: ZINC SULFATE 220 MG CAPSULE PO (09:43)
[2020-05-06] MEDS: ASCORBIC ACID 500 MG TABLET PO (09:43)
[2020-05-06 14:00] VITALS: BP 136/78; PULSE 100; RESP 20; TEMP 37; O2SAT 97
--- NOTE | 2020-05-06 14:28 | PM.IMPN ---
Progress Note: A&P Assessment and Plan (1) Unsteadiness: Code(s): R26.81 - Unsteadiness on feet Status: Acute Assessment and Plan: 05/06/20 14:28 Patient is 74-year-old male with history of Parkinson's disease he was brought to the emergency department by his with a complaint unsteady gait unfortunate patient is a poor historian unable to provide any history or review of symptoms, was also concern the patient with lower extremity edema, CTA chest showed No pulmonary embolism. However it showed new groundglass opacities in the lingula, right lower lobe and most prominently with patchy appearance in the left lower lobe raising concern for pneumonia with differential including COVID pneumonia. Differential includes atelectasis or mild pulmonary edema. Patient is being tested for COVID-19, and placed under isolation, patient was quite agitated last night he was given Zyprexa still somewhat somnolent. a sitter is present. Will await results of COVID-19 and further recommendation to follow, Will continue to monitor once clinically stablle, Patient COVID 19 is positive patient does not have fever and patient is not requring any oxygen started patient on dexamethasone, vitamin C and D, zinc, will continue to monitor further recommendation to follow. Patient with history of Parkinson's apparently his home medication were not resume and patient is restless and agitated, will resume patient's home medical and monitor. Patient with gait dysfunction and ataxia patient was seen by neurologist CT scan of the head did not show any pathology, MRI of the brain is ordered will follow, for PT OT evaluate the patient and further recommendation to follow. 05/04 patient is a COVID positive started the patient on dexamethasone, vitamin-C vitamin-D and zinc, patient remains clinically stable in terms of COVID-19 he has no fever and is on room air, however his quite agitated, restless and more confused, have resume patient's home medication, patient is seen by Neurology MRI was ordered the patient was quite agitated and was not able to complete, patient may be benefit going in to SNF, patient is too agitated and confused to participate in physical therapy. 05/05 patient remains clinically stable is not requiring any oxygen and does not have any fever while in the hospital, patient with history of Parkinson's we have resumed his home medication however patient is quite agitated and restless, patient is clinically stable can be discharged to snf or SNF 05/06 patient remains clinically stable is not requiring any oxygen and does not have any fever while in the hospital, patient with history of Parkinson's we have resumed his home medication however patient is quite agitated and restless, patient will be seen by a neurologist again for any recommendation to reduce patient agitation further recommendation to follow patient is clinically stable can be discharged to snf or SNF (2) Pneumonia: Qualifiers: Laterality: bilateral Lung location: lower lobe of lung Pneumonia type: due to unspecified organism Qualified Code(s): J18.9 - Pneumonia, unspecified organism Code(s): J18.9 - Pneumonia, unspecified organism Status: Acute Assessment and Plan: Awaiting COVID-19 results being isolated (3) Left leg swelling: Code(s): M79.89 - Other specified soft tissue disorders Status: Acute Assessment and Plan: Patent left lower extremity veins. No evidence of deep venous thrombosis. (4) Suspected 2019 novel coronavirus infection: Code(s): Z20.822 - Contact with and (suspected) exposure to COVID-19 Status: Acute Assessment and Plan: Plan is above (5) HLD (hyperlipidemia): Qualifiers: Hyperlipidemia type: mixed hyperlipidemia Qualified Code(s): E78.2 - Mixed hyperlipidemia Code(s): E78.5 - Hyperlipidemia, unspecified Status: Acute Assessment and Plan: [place]
[2020-05-06 17:22] VITALS: BP 147/76; PULSE 93; RESP 17; TEMP 36.8; O2SAT 97
[2020-05-06 21:54] VITALS: BP 127/62; PULSE 70; RESP 20; TEMP 36.4; O2SAT 96
[2020-05-07 02:00] VITALS: BP 108/57; PULSE 95; RESP 20; TEMP 36.2; O2SAT 100
[2020-05-07 05:57] VITALS: BP 144/72; PULSE 95; RESP 20; TEMP 36.3; O2SAT 97
[2020-05-07 08:00] VITALS: BP 145/75; PULSE 102; RESP 18; TEMP 36.2; O2SAT 100
[2020-05-07 08:27] LABS: Hematocrit 38.5 % (42.0-52.0); Hemoglobin 12.6 g/dL (14.0-18.0); Mean Corpuscular HGB Conc 32.7 g/dl (32-36); Mean Corpuscular Hemoglobin 31.3 pg (26-34); Mean Corpuscular Volume 95.5 fl (80-100); Mean Platelet Volume 9.6 fl (7.4-10.4); Platelet Count Result 532 k/mm3 (150-375); Red Blood Count 4.03 M/mm3 (4.6-6.20); Red Cell Distribution Width 13.1 % (11.5-14.5); White Blood Count 14.3 K/mm3 (4.5-10.0)
[2020-05-07 08:31] LABS: Alanine Aminotransferase 70 U/L (4-50); Alkaline Phosphatase 125 U/L (38-126); Anion Gap 9 mmol/L (8-16); Aspartate Amino Transferase 94 U/L (17-59); Bilirubin,Total 0.8 mg/dL (0.2-1.3); Blood Urea Nitrogen 45 mg/dL (9-20); Calcium 9.2 mg/dL (8.4-10.2); Carbon Dioxide 26 mmol/L (22-30); Chloride 119 mmol/L (98-107); Estimated CRCL calculation 67 ml/min; Estimated Glomerular Filt Rate > 60; Glucose 116 mg/dL (75-110); Sodium 154 mmol/L (137-145)
[2020-05-07] MEDS: DEXAMETHASONE SOD PHOS INJ 4 MG/ML VIAL 6 MG IV PUSH (09:40)
[2020-05-07] MEDS: CARBIDOPA/LEVODOPA 25/100 MG TABLET 1 TABLET PO ×3 (09:41→18:36)
[2020-05-07] MEDS: ZINC SULFATE 220 MG CAPSULE PO (09:41)
[2020-05-07] MEDS: ENOXAPARIN 40 MG/0.4 ML SYRINGE SUB-Q ×2 (09:41→20:52)
[2020-05-07] MEDS: ATORVASTATIN 10 MG TABLET PO (09:41)
[2020-05-07] MEDS: ASCORBIC ACID 500 MG TABLET PO (09:42)
[2020-05-07] MEDS: CHOLECALCIFEROL 1,000 UNITS TABLET 1000 UNITS PO (09:42)
[2020-05-07] MEDS: FAMOTIDINE 20 MG/2 ML VIAL IV PUSH ×2 (09:42→20:53)
--- NOTE | 2020-05-07 11:56 | PCOTNOTE ---
Attempted to see patient for OT, unable to rouse patient to participate in any ADLs or exercises, etc. Will attempt again later if time allows or continue plan of care tomorrow 05/08/2020.
[2020-05-07 12:00] VITALS: BP 134/81; PULSE 92; RESP 16; TEMP 36.4; O2SAT 100
--- NOTE | 2020-05-07 14:06 | WPDNEUROPN ---
Progress Note: A&P Assessment and Plan (1) Parkinson disease: Code(s): G20 - Parkinson's disease Status: Chronic (2) Unsteadiness: Code(s): R26.81 - Unsteadiness on feet Status: Acute Additional Plan delirium with Parkinson's disease will start him on Seroquel and follow Review of Systems Review of Systems: All systems reviewed & are unremarkable except as noted in HPI and below Exam Const: General: healthy appearing, alert and awake Nutritional Appearance: average body habitus and thin Orientation/consciousness: confusion Limitations: altered mental status and behavioral limitations Neck: Neck: full ROM and no lymphadenopathy Resp: Effort & Inspection: normal respiratory effort Auscultation: clear to auscultation bilaterally Cardio: Jugular venous distension: no JVD Rate: regular rate Rhythm: regular rhythm GI: Auscultation: normal bowel sounds Skin: General skin exam: no rashes or lesions noted Neuro: General: moves all extremities Cranial nerves: Yes Equal, round and reactive pupils present, Yes Bilaterally intact EOM present, Yes Nystagmus not present, Yes Normal facial strength present, Yes facial symmetry and Yes Midline tongue present Cognition (Neuro): abnormal cognition Speech: Abnormal speech present Motor exam (neuro): 5/5 motor strength present throughout and Motor abnormalites present Sensory Exam: normal sensation Deep tendon reflexes (DTR's): Right triceps reflex intensity grade: 1+, Left triceps reflex intensity grade: 1+, Rt Biceps (C5, C6): 1+, Left biceps reflex intensity grade: 1+, Right brachioradialis reflex intensity grade: 1+, Left brachioradialis reflex intensity grade: 1+, Right patellar reflex intensity grade: 1+, Left patellar reflex intensity grade: 1+, Right ankle reflex intensity grade: 1+ and Left ankle reflex intensity grade: 1+ Coordination: other ( does not cooperate) Extrem: General: full ROM Psych: Appearance: grossly normal Mental Status: other ( abnormal, does not follow through) Speech and movement: Slowed movement present (Neuro) Affect: Indifferent affect present Attitude: Guarded attititude/behavior present Thought process: Flight of ideas present Thought content: Yes Derealization present Insight: Poor insight present (Psych) Judgement: Poor judgement present (Psych) Objective Data Vital Signs Vital Signs: Vital Signs - 24 hr 05/06/20 17:22 05/06/20 21:54 05/07/20 02:00 Temperature 36.8 C 36.4 C L 36.2 C L Pulse Rate 93 70 95 Respiratory Rate 17 20 20 Blood Pressure 147/76 H 127/62 108/57 L Pulse Oximetry 97 96 100 05/07/20 05:57 05/07/20 08:00 05/07/20 12:00 Temperature 36.3 C L 36.2 C L 36.4 C Pulse Rate 95 102 H 92 Respiratory Rate 20 18 16 Blood Pressure 144/72 H 145/75 H 134/81 Pulse Oximetry 97 100 100 Intake/Output Intake/Output: Intake & Output 05/04/20 05/05/20 05/06/20 05/07/20 23:59 23:59 23:59 23:59 Intake Total 1140 1320 1170 780 Output Total 125 300 Balance 1015 1320 870 780 Meds/Results Medications: Active Medications Generic Name Dose Route Start Last Admin Trade Name Freq PRN Reason Stop Dose Admin Albuterol 1 - 2 puff 05/03/20 14:05 Albuterol Sulfate (*Sp) Aerosol 1 Puff INHALATION Q4-6H PRN Shortness Of Breath Ascorbic Acid 500 mg 05/03/20 09:40 05/07/20 09:42 Ascorbic Acid 500 Mg Tablet PO 500 mg DAILY SCOOBY Administration Atorvastatin Calcium 10 mg 05/03/20 09:00 05/07/20 09:41 Atorvastatin 10 Mg Tablet PO 10 mg DAILY SCOOBY Administration Carbidopa/Levodopa 1 tablet 05/03/20 17:00 05/07/20 14:01 Carbidopa/Levodopa 25/100 Mg Tablet PO 1 tablet TIDWM SCOOBY Administration Dexamethasone Sodium Phosphate 6 mg 05/03/20 09:00 05/07/20 09:40 Dexamethasone Sod Phos Inj 4 Mg/Ml Vial IV PUSH 05/12/20 09:01 6 mg DAILY SCOOBY Administration Enoxaparin Sodium 40 mg 05/03/20 21:00 05/07/20 09:41 Enoxaparin 40 Mg/0.4 Ml Syringe SUB-Q 4
--- NOTE | 2020-05-07 14:40 | PM.IMPN ---
Progress Note: A&P Assessment and Plan (1) Unsteadiness: Code(s): R26.81 - Unsteadiness on feet Status: Acute Assessment and Plan: 05/07/20 14:40 Patient is 74-year-old male with history of Parkinson's disease he was brought to the emergency department by his with a complaint unsteady gait unfortunate patient is a poor historian unable to provide any history or review of symptoms, was also concern the patient with lower extremity edema, CTA chest showed No pulmonary embolism. However it showed new groundglass opacities in the lingula, right lower lobe and most prominently with patchy appearance in the left lower lobe raising concern for pneumonia with differential including COVID pneumonia. Differential includes atelectasis or mild pulmonary edema. Patient is being tested for COVID-19, and placed under isolation, patient was quite agitated last night he was given Zyprexa still somewhat somnolent. a sitter is present. Will await results of COVID-19 and further recommendation to follow, Will continue to monitor once clinically stablle, Patient COVID 19 is positive patient does not have fever and patient is not requring any oxygen started patient on dexamethasone, vitamin C and D, zinc, will continue to monitor further recommendation to follow. Patient with history of Parkinson's apparently his home medication were not resume and patient is restless and agitated, will resume patient's home medical and monitor. Patient with gait dysfunction and ataxia patient was seen by neurologist CT scan of the head did not show any pathology, MRI of the brain is ordered will follow, for PT OT evaluate the patient and further recommendation to follow. 05/04 patient is a COVID positive started the patient on dexamethasone, vitamin-C vitamin-D and zinc, patient remains clinically stable in terms of COVID-19 he has no fever and is on room air, however his quite agitated, restless and more confused, have resume patient's home medication, patient is seen by Neurology MRI was ordered the patient was quite agitated and was not able to complete, patient may be benefit going in to SNF, patient is too agitated and confused to participate in physical therapy. 05/05 patient remains clinically stable is not requiring any oxygen and does not have any fever while in the hospital, patient with history of Parkinson's we have resumed his home medication however patient is quite agitated and restless, patient is clinically stable can be discharged to [facility]dc or SNF 05/06 patient remains clinically stable is not requiring any oxygen and does not have any fever while in the hospital, patient with history of Parkinson's we have resumed his home medication however patient is quite agitated and restless, patient will be seen by a neurologist again for any recommendation to reduce patient agitation further recommendation to follow patient is clinically stable can be discharged to fdc or SNF. 05/07 patient remains clinically stable is not requiring any oxygen and does not have any fever while in the hospital, patient with history of Parkinson's we have resumed his home medication however patient is quite agitated and restless, discussed with neurologist instructed to add Seroquel 12.5 mg twice a day to help with agitation and sleep, once patient is clinically stable not requiring sitter will discharge the patient to [facility] (2) Pneumonia: Qualifiers: Laterality: bilateral Lung location: lower lobe of lung Pneumonia type: due to unspecified organism Qualified Code(s): J18.9 - Pneumonia, unspecified organism Code(s): J18.9 - Pneumonia, unspecified organism Status: Acute Assessment and Plan: Awaiting COVID-19 results being isolated (3) Left leg swelling: Code(s): M79.89 - Other specified soft tissue disorders Status: Acute Assessment and Plan: Patent left lower extremity veins. No evidence of deep venous thrombos
[2020-05-07 16:00] VITALS: BP 124/65; PULSE 96; RESP 16; TEMP 36.1; O2SAT 99
[2020-05-07] MEDS: QUEtiapine FUMARATE 12.5 MG TABLET PO (18:37)
[2020-05-07 20:00] VITALS: BP 133/102; PULSE 100; RESP 18; TEMP 36.6; O2SAT 97
[2020-05-08] VITALS: BP 138/81; PULSE 91; RESP 18; TEMP 36.3; O2SAT 100
[2020-05-08 04:00] VITALS: BP 103/65; PULSE 93; RESP 18; TEMP 36.5; O2SAT 94
[2020-05-08] MEDS: QUEtiapine FUMARATE 12.5 MG TABLET PO ×2 (05:49→17:25)
[2020-05-08 06:41] LABS: Hematocrit 38.8 % (42.0-52.0); Hemoglobin 12.5 g/dL (14.0-18.0); Mean Corpuscular HGB Conc 32.2 g/dl (32-36); Mean Corpuscular Hemoglobin 30.5 pg (26-34); Mean Corpuscular Volume 94.6 fl (80-100); Mean Platelet Volume 9.5 fl (7.4-10.4); Platelet Count Result 485 k/mm3 (150-375); Red Cell Distribution Width 13.1 % (11.5-14.5); White Blood Count 14.3 K/mm3 (4.5-10.0)
[2020-05-08 06:57] LABS: Alanine Aminotransferase 51 U/L (4-50); Albumin Level 3.7 g/dL (3.5-5.1); Alkaline Phosphatase 110 U/L (38-126); Anion Gap 6 mmol/L (8-16); Aspartate Amino Transferase 68 U/L (17-59); Bilirubin,Total 0.7 mg/dL (0.2-1.3); Blood Urea Nitrogen 48 mg/dL (9-20); Calcium 8.9 mg/dL (8.4-10.2); Carbon Dioxide 27 mmol/L (22-30); Chloride 120 mmol/L (98-107); Estimated CRCL calculation 67 ml/min; Estimated Glomerular Filt Rate > 60; Glucose 136 mg/dL (75-110); Potassium 3.6 mmol/L (3.4-5.0); Sodium 153 mmol/L (137-145)
[2020-05-08 08:00] VITALS: BP 131/73; PULSE 89; RESP 20; TEMP 36.4; O2SAT 95
[2020-05-08] MEDS: CARBIDOPA/LEVODOPA 25/100 MG TABLET 1 TABLET PO ×3 (08:21→17:25)
[2020-05-08] MEDS: CHOLECALCIFEROL 1,000 UNITS TABLET 1000 UNITS PO (08:21)
[2020-05-08] MEDS: DEXAMETHASONE SOD PHOS INJ 4 MG/ML VIAL 6 MG IV PUSH (08:21)
[2020-05-08] MEDS: ATORVASTATIN 10 MG TABLET PO (08:21)
[2020-05-08] MEDS: ZINC SULFATE 220 MG CAPSULE PO (08:21)
[2020-05-08] MEDS: ASCORBIC ACID 500 MG TABLET PO (08:21)
[2020-05-08] MEDS: ENOXAPARIN 40 MG/0.4 ML SYRINGE SUB-Q ×2 (08:21→20:00)
[2020-05-08] MEDS: FAMOTIDINE 20 MG/2 ML VIAL IV PUSH ×2 (08:21→20:01)
[2020-05-08] MEDS: POTASSIUM CHLORIDE 20 MEQ TABLET 40 MEQ PO (11:45)
[2020-05-08 12:00] VITALS: BP 139/81; PULSE 93; RESP 20; TEMP 36.7; O2SAT 94
--- NOTE | 2020-05-08 12:52 | PM.IMPN ---
Progress Note: A&P Assessment and Plan (1) Unsteadiness: Code(s): R26.81 - Unsteadiness on feet Status: Acute Assessment and Plan: 05/08/20 12:52 Patient is 74-year-old male with history of Parkinson's disease he was brought to the emergency department by his with a complaint unsteady gait unfortunate patient is a poor historian unable to provide any history or review of symptoms, was also concern the patient with lower extremity edema, CTA chest showed No pulmonary embolism. However it showed new groundglass opacities in the lingula, right lower lobe and most prominently with patchy appearance in the left lower lobe raising concern for pneumonia with differential including COVID pneumonia. Differential includes atelectasis or mild pulmonary edema. Patient is being tested for COVID-19, and placed under isolation, patient was quite agitated last night he was given Zyprexa still somewhat somnolent. a sitter is present. Will await results of COVID-19 and further recommendation to follow, Will continue to monitor once clinically stablle, Patient COVID 19 is positive patient does not have fever and patient is not requring any oxygen started patient on dexamethasone, vitamin C and D, zinc, will continue to monitor further recommendation to follow. Patient with history of Parkinson's apparently his home medication were not resume and patient is restless and agitated, will resume patient's home medical and monitor. Patient with gait dysfunction and ataxia patient was seen by neurologist CT scan of the head did not show any pathology, MRI of the brain is ordered will follow, for PT OT evaluate the patient and further recommendation to follow. 05/04 patient is a COVID positive started the patient on dexamethasone, vitamin-C vitamin-D and zinc, patient remains clinically stable in terms of COVID-19 he has no fever and is on room air, however his quite agitated, restless and more confused, have resume patient's home medication, patient is seen by Neurology MRI was ordered the patient was quite agitated and was not able to complete, patient may be benefit going in to SNF, patient is too agitated and confused to participate in physical therapy. 05/05 patient remains clinically stable is not requiring any oxygen and does not have any fever while in the hospital, patient with history of Parkinson's we have resumed his home medication however patient is quite agitated and restless, patient is clinically stable can be discharged to [facility] or SNF 05/06 patient remains clinically stable is not requiring any oxygen and does not have any fever while in the hospital, patient with history of Parkinson's we have resumed his home medication however patient is quite agitated and restless, patient will be seen by a neurologist again for any recommendation to reduce patient agitation further recommendation to follow patient is clinically stable can be discharged to [facility] or SNF. 05/07 patient remains clinically stable is not requiring any oxygen and does not have any fever while in the hospital, patient with history of Parkinson's we have resumed his home medication however patient is quite agitated and restless, discussed with neurologist instructed to add Seroquel 12.5 mg twice a day to help with agitation and sleep, once patient is clinically stable not requiring sitter will discharge the patient to [facility]. 05/08 patient remains clinically stable is not requiring any oxygen and does not have any fever while in the hospital, patient with history of Parkinson's we have resumed his home medication however patient was quite agitated and restless since hospitalized on 05/07 discussed with neurologist instructed to add Seroquel 12.5 mg twice a day to help with agitation and sleep, and patient was started on the medication, today patient is calm and not agitated and not requiring any sitter, will discharge the patient to [facility] tomorrow. (2) Pneumonia:
--- NOTE | 2020-05-08 15:57 | PCOTNOTE ---
Attempted to see patient, patient unable to rouse. Will continue plan of care tomorrow 05/09/2021.
[2020-05-08 16:00] VITALS: BP 141/81; PULSE 98; RESP 18; TEMP 37.1; O2SAT 95
[2020-05-08 21:08] VITALS: BP 112/76; PULSE 91; RESP 16; TEMP 36.5; O2SAT 97
[2020-05-09] VITALS (7 sets, daily range): BP systolic 126–145; BP diastolic 65–88; PULSE 81–97; RESP 16–18; TEMP 36.1–36.9; O2SAT 93–97; BMI 26.3
[2020-05-09] MEDS: QUEtiapine FUMARATE 12.5 MG TABLET PO (05:27)
[2020-05-09 06:14] LABS: Hemoglobin 13.2 g/dL (14.0-18.0); Mean Corpuscular HGB Conc 31.4 g/dl (32-36); Mean Corpuscular Hemoglobin 30.6 pg (26-34); Mean Corpuscular Volume 97.4 fl (80-100); Mean Platelet Volume 9.8 fl (7.4-10.4); Platelet Count Result 456 k/mm3 (150-375); Red Blood Count 4.31 M/mm3 (4.6-6.20); Red Cell Distribution Width 13.3 % (11.5-14.5); White Blood Count 18.1 K/mm3 (4.5-10.0)
[2020-05-09 06:35] LABS: Alanine Aminotransferase 44 U/L (4-50); Albumin Level 3.7 g/dL (3.5-5.1); Alkaline Phosphatase 112 U/L (38-126); Anion Gap 6 mmol/L (8-16); Aspartate Amino Transferase 78 U/L (17-59); Bilirubin,Total 0.7 mg/dL (0.2-1.3); Blood Urea Nitrogen 50 mg/dL (9-20); Carbon Dioxide 28 mmol/L (22-30); Chloride 124 mmol/L (98-107); Estimated CRCL calculation 61 ml/min; Estimated Glomerular Filt Rate > 60; Glucose 119 mg/dL (75-110); Potassium 3.9 mmol/L (3.4-5.0); Sodium 158 mmol/L (137-145)
[2020-05-09] MEDS: CARBIDOPA/LEVODOPA 25/100 MG TABLET 1 TABLET PO ×2 (08:08→17:09)
[2020-05-09] MEDS: CHOLECALCIFEROL 1,000 UNITS TABLET 1000 UNITS PO (08:09)
[2020-05-09] MEDS: ATORVASTATIN 10 MG TABLET PO (08:09)
[2020-05-09] MEDS: ENOXAPARIN 40 MG/0.4 ML SYRINGE SUB-Q (08:09)
[2020-05-09] MEDS: DEXAMETHASONE SOD PHOS INJ 4 MG/ML VIAL 6 MG IV PUSH (08:09)
[2020-05-09] MEDS: ASCORBIC ACID 500 MG TABLET PO (08:10)
[2020-05-09] MEDS: ZINC SULFATE 220 MG CAPSULE PO (08:10)
[2020-05-09] MEDS: FAMOTIDINE 20 MG/2 ML VIAL IV PUSH (08:10)
--- NOTE | 2020-05-09 09:19 | WPDNEUROPN ---
Progress Note: A&P Assessment and Plan (1) Dementia: Code(s): F03.90 - Unspecified dementia without behavioral disturbance Status: Acute (2) Hallucinations due to late onset dementia: Code(s): F03.90 - Unspecified dementia without behavioral disturbance; R44.3 - Hallucinations, unspecified Status: Acute Additional Plan dementia Parkinson's disease complicated by the intermittent hallucination became extremely sedated on Seroquel 25 mg twice a day will decrease it to12.5mg only once in the evening Review of Systems Review of Systems: All systems reviewed & are unremarkable except as noted in HPI and below Exam Const: General: no acute distress Nutritional Appearance: average body habitus Limitations: behavioral limitations and physical limitations HENMT: Head: normocephalic Ears: hearing grossly normal bilaterally Mouth: Yes Normal oral and palatal mucosa present Eyes: General: appearance normal, both eyes and all related structures Alignment and Position: alignment normal Periorbital: periorbital findings normal Eyelids: eyelids normal Conjunctivae: conjunctivae normal Sclera: sclerae normal Cornea: corneas normal EOM: EOMs intact bilaterally Neck: Neck: full ROM Resp: Effort & Inspection: normal respiratory effort Auscultation: clear to auscultation bilaterally Cardio: Rate: regular rate Rhythm: regular rhythm GI: Auscultation: normoactive bowel sounds Skin: General skin exam: no rashes or lesions noted Neuro: General: moves all extremities, no meningeal signs, confusion and Unable to assess gait Cranial nerves: Yes Equal, round and reactive pupils present, Yes Nystagmus not present and Yes facial symmetry Cognition (Neuro): abnormal cognition Speech: Abnormal speech present Gait exam (Neuro): Unable to assess gait Motor exam (neuro): Normal motor muscle tone present throughout Sensory Exam: normal sensation Deep tendon reflexes (DTR's): Right triceps reflex intensity grade: 1+, Left triceps reflex intensity grade: 1+, Rt Biceps (C5, C6): 1+, Left biceps reflex intensity grade: 1+, Right brachioradialis reflex intensity grade: 1+, Left brachioradialis reflex intensity grade: 1+, Right patellar reflex intensity grade: 1+, Left patellar reflex intensity grade: 1+, Right ankle reflex intensity grade: 1+ and Left ankle reflex intensity grade: 1+ Plantar Reflex Responses: equivocal: bilateral Psych: Speech and movement: Mute speech present Attitude: Refuses to answer (attititude/behavior) Insight: Poor insight present (Psych) Judgement: Poor judgement present (Psych) Objective Data Vital Signs Vital Signs: Vital Signs - 24 hr 05/08/20 12:00 05/08/20 16:00 05/08/20 21:08 Temperature 36.7 C 37.1 C 36.5 C Pulse Rate 93 98 91 Respiratory Rate 20 18 16 Blood Pressure 139/81 141/81 H 112/76 Pulse Oximetry 94 95 97 05/09/20 01:56 05/09/20 02:00 05/09/20 06:00 Temperature 36.4 C 36.3 C L Pulse Rate 91 88 81 Respiratory Rate 16 18 16 Blood Pressure 145/82 H 138/88 Pulse Oximetry 97 96 96 Intake/Output Intake/Output: Intake & Output 05/06/20 05/07/20 05/08/20 05/09/20 23:59 23:59 23:59 23:59 Intake Total 1420 1330 280 120 Output Total 300 Balance 1120 1330 280 120 Meds/Results Medications: Active Medications Generic Name Dose Route Start Last Admin Trade Name Freq PRN Reason Stop Dose Admin Albuterol 1 - 2 puff 05/03/20 14:05 Albuterol Sulfate (*Sp) Aerosol 1 Puff INHALATION Q4-6H PRN Shortness Of Breath Ascorbic Acid 500 mg 05/03/20 09:40 05/09/20 08:10 Ascorbic Acid 500 Mg Tablet PO 500 mg DAILY SCOOBY Administration Atorvastatin Calcium 10 mg 05/03/20 09:00 05/09/20 08:09 Atorvastatin 10 Mg Tablet PO 10 mg DAILY SCOOBY Administration Carbidopa/Levodopa 1 tablet 05/03/20 17:00 05/09/20 08:08 Carbidopa/Levodopa 25/100 Mg Tablet PO 1 tablet TIDWM SCOOBY Administration Dexamethasone Sodium Phosphate 6 mg
--- NOTE | 2020-05-09 10:32 | PCPTNOTE ---
RN reports to hold PT this A.M. stating patient would not be able to participate and follow directions.
--- NOTE | 2020-05-09 12:14 | PCPTNOTE ---
RN reports to hold PT this P.M. stating patient would not be able to participate and follow directions. Will continue per Plan of Care frequency and duration.
--- NOTE | 2020-05-09 15:15 | PM.IMPN ---
Progress Note: A&P Assessment and Plan (1) Unsteadiness: Code(s): R26.81 - Unsteadiness on feet Status: Acute Assessment and Plan: 05/09/20 15:15 Patient is 74-year-old male with history of Parkinson's disease he was brought to the emergency department by his with a complaint unsteady gait unfortunate patient is a poor historian unable to provide any history or review of symptoms, was also concern the patient with lower extremity edema, CTA chest showed No pulmonary embolism. However it showed new groundglass opacities in the lingula, right lower lobe and most prominently with patchy appearance in the left lower lobe raising concern for pneumonia with differential including COVID pneumonia. Differential includes atelectasis or mild pulmonary edema. Patient is being tested for COVID-19, and placed under isolation, patient was quite agitated last night he was given Zyprexa still somewhat somnolent. a sitter is present. Will await results of COVID-19 and further recommendation to follow, Will continue to monitor once clinically stablle, Patient COVID 19 is positive patient does not have fever and patient is not requring any oxygen started patient on dexamethasone, vitamin C and D, zinc, will continue to monitor further recommendation to follow. Patient with history of Parkinson's apparently his home medication were not resume and patient is restless and agitated, will resume patient's home medical and monitor. Patient with gait dysfunction and ataxia patient was seen by neurologist CT scan of the head did not show any pathology, MRI of the brain is ordered will follow, for PT OT evaluate the patient and further recommendation to follow. 05/04 patient is a COVID positive started the patient on dexamethasone, vitamin-C vitamin-D and zinc, patient remains clinically stable in terms of COVID-19 he has no fever and is on room air, however his quite agitated, restless and more confused, have resume patient's home medication, patient is seen by Neurology MRI was ordered the patient was quite agitated and was not able to complete, patient may be benefit going in to SNF, patient is too agitated and confused to participate in physical therapy. 05/05 patient remains clinically stable is not requiring any oxygen and does not have any fever while in the hospital, patient with history of Parkinson's we have resumed his home medication however patient is quite agitated and restless, patient is clinically stable can be discharged to care home or SNF 05/06 patient remains clinically stable is not requiring any oxygen and does not have any fever while in the hospital, patient with history of Parkinson's we have resumed his home medication however patient is quite agitated and restless, patient will be seen by a neurologist again for any recommendation to reduce patient agitation further recommendation to follow patient is clinically stable can be discharged to care home or SNF. 05/07 patient remains clinically stable is not requiring any oxygen and does not have any fever while in the hospital, patient with history of Parkinson's we have resumed his home medication however patient is quite agitated and restless, discussed with neurologist instructed to add Seroquel 12.5 mg twice a day to help with agitation and sleep, once patient is clinically stable not requiring sitter will discharge the patient to care home. 05/08 patient remains clinically stable is not requiring any oxygen and does not have any fever while in the hospital, patient with history of Parkinson's we have resumed his home medication however patient was quite agitated and restless since hospitalized on 05/07 discussed with neurologist instructed to add Seroquel 12.5 mg twice a day to help with agitation and sleep, and patient was started on the medication, today patient is calm and not agitated and not requiring any sitter, will discharge the patient to care home tomorrow. 05/09 patient heather
[2020-05-10] VITALS: BP 149/97; PULSE 93; RESP 18; TEMP 36.1; O2SAT 98
[2020-05-10] MEDS: DEXTROSE 5%/0.45% SOD CHL 1,000 ML 75 ML IV CONT ×2 (00:18→14:28)
[2020-05-10] MEDS: ENOXAPARIN 40 MG/0.4 ML SYRINGE SUB-Q ×3 (00:18→21:14)
[2020-05-10] MEDS: FAMOTIDINE 20 MG/2 ML VIAL IV PUSH ×3 (00:18→21:14)
[2020-05-10 04:00] VITALS: BP 147/82; PULSE 88; RESP 18; TEMP 35.8; O2SAT 90
[2020-05-10 06:40] LABS: Hematocrit 45.1 % (42.0-52.0); Hemoglobin 14.1 g/dL (14.0-18.0); Mean Corpuscular HGB Conc 31.3 g/dl (32-36); Mean Corpuscular Hemoglobin 31.5 pg (26-34); Mean Corpuscular Volume 100.9 fl (80-100); Mean Platelet Volume 10.1 fl (7.4-10.4); Platelet Count Result 391 k/mm3 (150-375); Red Blood Count 4.47 M/mm3 (4.6-6.20); Red Cell Distribution Width 13.4 % (11.5-14.5); White Blood Count 20.6 K/mm3 (4.5-10.0)
[2020-05-10 06:44] LABS: Alanine Aminotransferase 62 U/L (4-50); Albumin Level 3.7 g/dL (3.5-5.1); Alkaline Phosphatase 124 U/L (38-126); Anion Gap 4 mmol/L (8-16); Aspartate Amino Transferase 97 U/L (17-59); Bilirubin,Total 0.7 mg/dL (0.2-1.3); Blood Urea Nitrogen 49 mg/dL (9-20); Calcium 9.1 mg/dL (8.4-10.2); Carbon Dioxide 29 mmol/L (22-30); Chloride 125 mmol/L (98-107); Estimated CRCL calculation 61 ml/min; Estimated Glomerular Filt Rate > 60; Glucose 132 mg/dL (75-110); Potassium 4.2 mmol/L (3.4-5.0); Sodium 158 mmol/L (137-145)
[2020-05-10 08:00] VITALS: BP 153/76; PULSE 94; RESP 18; TEMP 36.6; O2SAT 98
[2020-05-10] MEDS: ATORVASTATIN 10 MG TABLET PO (10:11)
[2020-05-10] MEDS: CHOLECALCIFEROL 1,000 UNITS TABLET 1000 UNITS PO (10:11)
[2020-05-10] MEDS: CARBIDOPA/LEVODOPA 25/100 MG TABLET 1 TABLET PO ×3 (10:11→18:28)
[2020-05-10] MEDS: DEXAMETHASONE SOD PHOS INJ 4 MG/ML VIAL 6 MG IV PUSH (10:12)
[2020-05-10] MEDS: ASCORBIC ACID 500 MG TABLET PO (10:12)
[2020-05-10] MEDS: ZINC SULFATE 220 MG CAPSULE PO (10:12)
[2020-05-10 13:00] VITALS: BP 143/83; PULSE 91; RESP 18; TEMP 36.8; O2SAT 95
--- NOTE | 2020-05-10 15:14 | PCPTNOTE ---
The PT treatment was unable to be completed today. Patient was unresponsive to verbal and tactile cueing. Will continue per Plan of Care frequency and duration.
--- NOTE | 2020-05-10 15:58 | PM.IMPN ---
Progress Note: A&P Assessment and Plan (1) Unsteadiness: Code(s): R26.81 - Unsteadiness on feet Status: Acute Assessment and Plan: Likely multifactorial and secondary to advanced Parkinson's disease, pneumonia, chronic debility, and possible metastatic disease. Continue treatment for pneumonia. Recent Brain CT was WNL. PT/OT evaluation when appropriate. Neurology consultation in a.m (2) Pneumonia: Qualifiers: Laterality: bilateral Lung location: lower lobe of lung Pneumonia type: due to unspecified organism Qualified Code(s): J18.9 - Pneumonia, unspecified organism Code(s): J18.9 - Pneumonia, unspecified organism Status: Acute Assessment and Plan: Continue IV antibiotics, bronchodilators, oxygen supplementation as needed. blood cultures pending. (3) Left leg swelling: Code(s): M79.89 - Other specified soft tissue disorders Status: Acute Assessment and Plan: Check LE doppler U/S in am to rule out acute DVT. (4) Suspected 2019 novel coronavirus infection: Code(s): Z20.822 - Contact with and (suspected) exposure to COVID-19 Status: Acute Assessment and Plan: CT chest was suspicous for COVID pneumonia. Continue droplet isolation. Continue supportive care. COVID results pending. (5) Abnormal CT scan: Code(s): R93.89 - Abnormal findings on diagnostic imaging of other specified body structures Status: Acute Assessment and Plan: Chest CT is suspicious for metastatic disease w/ chest mass. Consider Oncology/pulmonology consultation in am vs. outpatient referral for workup. (6) HLD (hyperlipidemia): Qualifiers: Hyperlipidemia type: mixed hyperlipidemia Qualified Code(s): E78.2 - Mixed hyperlipidemia Code(s): E78.5 - Hyperlipidemia, unspecified Status: Chronic Assessment and Plan: Continue atorvastatin. (7) Parkinson disease: Code(s): G20 - Parkinson's disease Status: Chronic Assessment and Plan: Continue Sinemet. Continue Neurology recommendations. Subjective Date/time seen: 05/10/20 15:58 Patient is 74-year-old male with history of Parkinson's disease he was brought to the emergency department by his with a complaint unsteady gait unfortunate patient is a poor historian unable to provide any history or review of symptoms, was also concern the patient with lower extremity edema, CTA chest showed No pulmonary embolism. However it showed new groundglass opacities in the lingula, right lower lobe and most prominently with patchy appearance in the left lower lobe raising concern for pneumonia with differential including COVID pneumonia. Differential includes atelectasis or mild pulmonary edema. Patient is being tested for COVID-19, and placed under isolation, patient was quite agitated last night he was given Zyprexa still somewhat somnolent. a sitter is present. Will await results of COVID-19 and further recommendation to follow, Will continue to monitor once clinically stablle, Patient COVID 19 is positive patient does not have fever and patient is not requring any oxygen started patient on dexamethasone, vitamin C and D, zinc, will continue to monitor further recommendation to follow. Patient with history of Parkinson's apparently his home medication were not resume and patient is restless and agitated, will resume patient's home medical and monitor. Patient with gait dysfunction and ataxia patient was seen by neurologist CT scan of the head did not show any pathology, MRI of the brain is ordered will follow, for PT OT evaluate the patient and further recommendation to follow. 05/04 patient is a COVID positive started the patient on dexamethasone, vitamin-C vitamin-D and zinc, patient remains clinically stable in terms of COVID-19 he has no fever and is on room air, however his quite agitated, restless and more confused, have resume patient's home medication, patient is seen
[2020-05-10 16:00] VITALS: BP 155/84; PULSE 60; RESP 22; TEMP 37.2; O2SAT 97
[2020-05-10 21:40] VITALS: BP 152/96; PULSE 86; RESP 20; TEMP 36; O2SAT 97
[2020-05-11 04:25] VITALS: BP 147/85; PULSE 77; RESP 20; TEMP 36.3; O2SAT 94
[2020-05-11 06:44] LABS: Hematocrit 42.8 % (42.0-52.0); Hemoglobin 13.4 g/dL (14.0-18.0); Mean Corpuscular HGB Conc 31.3 g/dl (32-36); Mean Corpuscular Hemoglobin 31.2 pg (26-34); Mean Corpuscular Volume 99.8 fl (80-100); Mean Platelet Volume 10.1 fl (7.4-10.4); Platelet Count Result 341 k/mm3 (150-375); Red Blood Count 4.29 M/mm3 (4.6-6.20); Red Cell Distribution Width 13.4 % (11.5-14.5); White Blood Count 19.7 K/mm3 (4.5-10.0)
[2020-05-11] MEDS: DEXTROSE 5%/0.45% SOD CHL 1,000 ML 75 ML IV CONT (06:45)
[2020-05-11 06:59] LABS: Potassium 4.2 mmol/L (3.4-5.0)
[2020-05-11 07:01] LABS: Alanine Aminotransferase 58 U/L (4-50); Albumin Level 3.3 g/dL (3.5-5.1); Alkaline Phosphatase 128 U/L (38-126); Anion Gap 6 mmol/L (8-16); Aspartate Amino Transferase 85 U/L (17-59); Bilirubin,Total 0.6 mg/dL (0.2-1.3); Blood Urea Nitrogen 46 mg/dL (9-20); Calcium 8.7 mg/dL (8.4-10.2); Carbon Dioxide 29 mmol/L (22-30); Chloride 124 mmol/L (98-107); Estimated CRCL calculation 61 ml/min; Estimated Glomerular Filt Rate > 60; Glucose 112 mg/dL (75-110); Sodium 159 mmol/L (137-145)
--- NOTE | 2020-05-11 10:38 | WPDCDIQUERY2 ---
CDI Query Clarification Request -05/07 Na-154, 05/09-Na 158, 05/11-Na 159 Please clarify if there is a possible corresponding diagnosis for above findings <Melissa Worrell RN - Last Filed: 05/11/20 10:40> Clarified Diagnosis (1) Dehydration: Code(s): E86.0 - Dehydration <Melissa Worrell RN - Last Filed: 05/11/20 10:40> Status: Acute <Melissa Worrell RN - Last Filed: 05/11/20 10:40> Assessment and Plan: plan is above <Saúl Uriarte MD - Last Filed: 05/11/20 16:27>
[2020-05-11] MEDS: ZINC SULFATE 220 MG CAPSULE PO (10:54)
[2020-05-11] MEDS: ATORVASTATIN 10 MG TABLET PO (10:54)
[2020-05-11] MEDS: DEXAMETHASONE SOD PHOS INJ 4 MG/ML VIAL 6 MG IV PUSH (10:54)
[2020-05-11] MEDS: CHOLECALCIFEROL 1,000 UNITS TABLET 1000 UNITS PO (10:54)
[2020-05-11] MEDS: CARBIDOPA/LEVODOPA 25/100 MG TABLET 1 TABLET PO ×2 (10:54→17:24)
[2020-05-11] MEDS: ASCORBIC ACID 500 MG TABLET PO (10:54)
[2020-05-11] MEDS: ENOXAPARIN 40 MG/0.4 ML SYRINGE SUB-Q ×2 (10:55→22:23)
[2020-05-11] MEDS: FAMOTIDINE 20 MG/2 ML VIAL IV PUSH ×2 (10:55→22:23)
[2020-05-11 14:00] VITALS: BP 137/70; PULSE 109; RESP 20; TEMP 37.1; O2SAT 100
--- NOTE | 2020-05-11 16:10 | PM.IMPN ---
Progress Note: A&P Assessment and Plan (1) Unsteadiness: Code(s): R26.81 - Unsteadiness on feet Status: Acute Assessment and Plan: Likely multifactorial and secondary to advanced Parkinson's disease, pneumonia, chronic debility, and possible metastatic disease. Continue treatment for pneumonia. Recent Brain CT was WNL. PT/OT evaluation when appropriate. Neurology consultation in a.m 05/11/20 16:10 Patient is 74-year-old male with history of Parkinson's disease he was brought to the emergency department by his with a complaint unsteady gait unfortunate patient is a poor historian unable to provide any history or review of symptoms, was also concern the patient with lower extremity edema, CTA chest showed No pulmonary embolism. However it showed new groundglass opacities in the lingula, right lower lobe and most prominently with patchy appearance in the left lower lobe raising concern for pneumonia with differential including COVID pneumonia. Differential includes atelectasis or mild pulmonary edema. Patient is being tested for COVID-19, and placed under isolation, patient was quite agitated last night he was given Zyprexa still somewhat somnolent. a sitter is present. Will await results of COVID-19 and further recommendation to follow, Will continue to monitor once clinically stablle, Patient COVID 19 is positive patient does not have fever and patient is not requring any oxygen started patient on dexamethasone, vitamin C and D, zinc, will continue to monitor further recommendation to follow. Patient with history of Parkinson's apparently his home medication were not resume and patient is restless and agitated, will resume patient's home medical and monitor. Patient with gait dysfunction and ataxia patient was seen by neurologist CT scan of the head did not show any pathology, MRI of the brain is ordered will follow, for PT OT evaluate the patient and further recommendation to follow. 05/04 patient is a COVID positive started the patient on dexamethasone, vitamin-C vitamin-D and zinc, patient remains clinically stable in terms of COVID-19 he has no fever and is on room air, however his quite agitated, restless and more confused, have resume patient's home medication, patient is seen by Neurology MRI was ordered the patient was quite agitated and was not able to complete, patient may be benefit going in to SNF, patient is too agitated and confused to participate in physical therapy. 05/05 patient remains clinically stable is not requiring any oxygen and does not have any fever while in the hospital, patient with history of Parkinson's we have resumed his home medication however patient is quite agitated and restless, patient is clinically stable can be discharged to shelter or SNF 05/06 patient remains clinically stable is not requiring any oxygen and does not have any fever while in the hospital, patient with history of Parkinson's we have resumed his home medication however patient is quite agitated and restless, patient will be seen by a neurologist again for any recommendation to reduce patient agitation further recommendation to follow patient is clinically stable can be discharged to shelter or SNF. 05/07 patient remains clinically stable is not requiring any oxygen and does not have any fever while in the hospital, patient with history of Parkinson's we have resumed his home medication however patient is quite agitated and restless, discussed with neurologist instructed to add Seroquel 12.5 mg twice a day to help with agitation and sleep, once patient is clinically stable not requiring sitter will discharge the patient to shelter. 05/08 patient remains clinically stable is not requiring any oxygen and does not have any fever while in the hospital, patient with history of Parkinson's we have resumed his home medication however patient was quite agitated and restless since hospitalized on 05/07 discussed with neurologist instruct
[2020-05-11] MEDS: DEXTROSE 5% 1,000 ML 1,000 ML 75 ML IV CONT (18:30)
[2020-05-11 20:00] VITALS: O2SAT 97
[2020-05-11 22:00] VITALS: BP 154/92; PULSE 89; RESP 20; TEMP 36.2; O2SAT 97
[2020-05-12 06:00] VITALS: BP 169/97; PULSE 86; RESP 18; TEMP 36.2; O2SAT 95
[2020-05-12 06:09] LABS: Hematocrit 42.5 % (42.0-52.0); Hemoglobin 13.2 g/dL (14.0-18.0); Mean Corpuscular HGB Conc 31.1 g/dl (32-36); Mean Corpuscular Hemoglobin 30.9 pg (26-34); Mean Corpuscular Volume 99.5 fl (80-100); Platelet Count Result 282 k/mm3 (150-375); Red Blood Count 4.27 M/mm3 (4.6-6.20); Red Cell Distribution Width 13.3 % (11.5-14.5); White Blood Count 17.3 K/mm3 (4.5-10.0)
[2020-05-12 06:22] LABS: Alanine Aminotransferase 123 U/L (4-50); Albumin Level 3.3 g/dL (3.5-5.1); Alkaline Phosphatase 143 U/L (38-126); Anion Gap 7 mmol/L (8-16); Aspartate Amino Transferase 92 U/L (17-59); Bilirubin,Total 0.6 mg/dL (0.2-1.3); Blood Urea Nitrogen 45 mg/dL (9-20); Calcium 8.9 mg/dL (8.4-10.2); Carbon Dioxide 27 mmol/L (22-30); Chloride 123 mmol/L (98-107); Estimated CRCL calculation 61 ml/min; Estimated Glomerular Filt Rate > 60; Glucose 135 mg/dL (75-110); Sodium 157 mmol/L (137-145)
[2020-05-12] MEDS: FAMOTIDINE 20 MG/2 ML VIAL IV PUSH (09:51)
[2020-05-12] MEDS: DEXAMETHASONE SOD PHOS INJ 4 MG/ML VIAL 6 MG IV PUSH (09:51)
[2020-05-12] MEDS: ENOXAPARIN 40 MG/0.4 ML SYRINGE SUB-Q (09:52)
[2020-05-12] MEDS: DEXTROSE 5% 1,000 ML 1,000 ML 75 ML IV CONT (09:53)
--- NOTE | 2020-05-12 11:01 | PM.IMPN ---
Progress Note: A&P Assessment and Plan (1) Dehydration: Code(s): E86.0 - Dehydration Status: Acute Assessment and Plan: 05/12/20 11:01 Patient is 74-year-old male with history of Parkinson's disease he was brought to the emergency department by his with a complaint unsteady gait unfortunate patient is a poor historian unable to provide any history or review of symptoms, was also concern the patient with lower extremity edema, CTA chest showed No pulmonary embolism. However it showed new groundglass opacities in the lingula, right lower lobe and most prominently with patchy appearance in the left lower lobe raising concern for pneumonia with differential including COVID pneumonia. Differential includes atelectasis or mild pulmonary edema. Patient is being tested for COVID-19, and placed under isolation, patient was quite agitated last night he was given Zyprexa still somewhat somnolent. a sitter is present. Will await results of COVID-19 and further recommendation to follow, Will continue to monitor once clinically stablle, Patient COVID 19 is positive patient does not have fever and patient is not requring any oxygen started patient on dexamethasone, vitamin C and D, zinc, will continue to monitor further recommendation to follow. Patient with history of Parkinson's apparently his home medication were not resume and patient is restless and agitated, will resume patient's home medical and monitor. Patient with gait dysfunction and ataxia patient was seen by neurologist CT scan of the head did not show any pathology, MRI of the brain is ordered will follow, for PT OT evaluate the patient and further recommendation to follow. 05/04 patient is a COVID positive started the patient on dexamethasone, vitamin-C vitamin-D and zinc, patient remains clinically stable in terms of COVID-19 he has no fever and is on room air, however his quite agitated, restless and more confused, have resume patient's home medication, patient is seen by Neurology MRI was ordered the patient was quite agitated and was not able to complete, patient may be benefit going in to SNF, patient is too agitated and confused to participate in physical therapy. 05/05 patient remains clinically stable is not requiring any oxygen and does not have any fever while in the hospital, patient with history of Parkinson's we have resumed his home medication however patient is quite agitated and restless, patient is clinically stable can be discharged to shelter or SNF 05/06 patient remains clinically stable is not requiring any oxygen and does not have any fever while in the hospital, patient with history of Parkinson's we have resumed his home medication however patient is quite agitated and restless, patient will be seen by a neurologist again for any recommendation to reduce patient agitation further recommendation to follow patient is clinically stable can be discharged to shelter or SNF. 05/07 patient remains clinically stable is not requiring any oxygen and does not have any fever while in the hospital, patient with history of Parkinson's we have resumed his home medication however patient is quite agitated and restless, discussed with neurologist instructed to add Seroquel 12.5 mg twice a day to help with agitation and sleep, once patient is clinically stable not requiring sitter will discharge the patient to shelter. 05/08 patient remains clinically stable is not requiring any oxygen and does not have any fever while in the hospital, patient with history of Parkinson's we have resumed his home medication however patient was quite agitated and restless since hospitalized on 05/07 discussed with neurologist instructed to add Seroquel 12.5 mg twice a day to help with agitation and sleep, and patient was started on the medication, today patient is calm and not agitated and not requiring any sitter, will discharge the patient to shelter tomorrow. 05/09 patient remains clinica
--- NOTE | 2020-05-12 11:36 | PCNFU ---
Nutrition Follow-Up Complete: Inadequate Oral intake as related to pneumonia as evidenced by poor reported po intake. Goal:Meet estimated nutritional needs Limited progress towards goal. We will continue current goal. Pt current nutrition is Heart Healthy with Frozen Nutritional Treat BID. Last recorded weight is 93 kg, no new weight to report. Bowel Motility:+BM reported 05/10. Labs Reviewed:Na 157,Alb 3.3,Glu 135,BUN 45,Hgb 13.2 Meds Noted:Nursing reports unable to give safely give meds today. Additional Notes: Nutrition follow up. Patient currently on a heart healthy diet. Oral Intake has been poor refusing meals. Hospice Consult has been ordered. We will monitor for further plan of care. Monitoring: Will monitor every 3 days.
[2020-05-12 14:00] VITALS: BP 179/81; PULSE 98; RESP 20; TEMP 36.7; O2SAT 98
--- NOTE | 2020-05-12 14:10 | PCOTNOTE ---
Attempted to see patient this pm, however patient declined.
--- NOTE | 2020-05-12 16:06 | PCPTNOTE ---
PT attempted to see patient this A.M., however patient did not participate. PT will continue to follow per plan of care.
--- NOTE | 2020-05-22 16:10 | PM.DS ---
DS: Admitting Diagnosis Admitting Diagnosis Admitting Diagnosis: Chief Complaint: unsteadiness DS: Discharge Diagnosis Discharge Diagnosis (1) Dehydration: Code(s): E86.0 - Dehydration Status: Acute Assessment and Plan: 05/12/20 11:01 Patient is 74-year-old male with history of Parkinson's disease he was brought to the emergency department by his with a complaint unsteady gait unfortunate patient is a poor historian unable to provide any history or review of symptoms, was also concern the patient with lower extremity edema, CTA chest showed No pulmonary embolism. However it showed new groundglass opacities in the lingula, right lower lobe and most prominently with patchy appearance in the left lower lobe raising concern for pneumonia with differential including COVID pneumonia. Differential includes atelectasis or mild pulmonary edema. Patient is being tested for COVID-19, and placed under isolation, patient was quite agitated last night he was given Zyprexa still somewhat somnolent. a sitter is present. Will await results of COVID-19 and further recommendation to follow, Will continue to monitor once clinically stablle, Patient COVID 19 is positive patient does not have fever and patient is not requring any oxygen started patient on dexamethasone, vitamin C and D, zinc, will continue to monitor further recommendation to follow. Patient with history of Parkinson's apparently his home medication were not resume and patient is restless and agitated, will resume patient's home medical and monitor. Patient with gait dysfunction and ataxia patient was seen by neurologist CT scan of the head did not show any pathology, MRI of the brain is ordered will follow, for PT OT evaluate the patient and further recommendation to follow. 05/04 patient is a COVID positive started the patient on dexamethasone, vitamin-C vitamin-D and zinc, patient remains clinically stable in terms of COVID-19 he has no fever and is on room air, however his quite agitated, restless and more confused, have resume patient's home medication, patient is seen by Neurology MRI was ordered the patient was quite agitated and was not able to complete, patient may be benefit going in to SNF, patient is too agitated and confused to participate in physical therapy. 05/05 patient remains clinically stable is not requiring any oxygen and does not have any fever while in the hospital, patient with history of Parkinson's we have resumed his home medication however patient is quite agitated and restless, patient is clinically stable can be discharged to jail or SNF 05/06 patient remains clinically stable is not requiring any oxygen and does not have any fever while in the hospital, patient with history of Parkinson's we have resumed his home medication however patient is quite agitated and restless, patient will be seen by a neurologist again for any recommendation to reduce patient agitation further recommendation to follow patient is clinically stable can be discharged to jail or SNF. 05/07 patient remains clinically stable is not requiring any oxygen and does not have any fever while in the hospital, patient with history of Parkinson's we have resumed his home medication however patient is quite agitated and restless, discussed with neurologist instructed to add Seroquel 12.5 mg twice a day to help with agitation and sleep, once patient is clinically stable not requiring sitter will discharge the patient to jail. 05/08 patient remains clinically stable is not requiring any oxygen and does not have any fever while in the hospital, patient with history of Parkinson's we have resumed his home medication however patient was quite agitated and restless since hospitalized on 05/07 discussed with neurologist instructed to add Seroquel 12.5 mg twice a day to help with agitation and sleep, and patient was started on the medication, today patient is calm and not agitated and not req
== END 2020-05-12 17:41 | disposition hospice, inpatient (51) | DRG 177 ==
LOC: ANHED 19:01 → ANH3MEDSUR 19:19
PROVIDERS: Emergency Medicine Emergency Medical Services; Admitting Provider Family Medicine; Emergency Provider Emergency Medicine; PCP Emergency Medicine; Visit Provider Family Medicine
DX: U07.1 COVID-19 (principal); J12.82 Pneumonia due to coronavirus disease 2019; R44.3 Hallucinations, unspecified; F03.90 Unspecified dementia, unspecified severity, without behavioral disturbance, psychotic disturbance, mood disturbance, and anxiety; G20 Parkinson's disease; M79.89 Other specified soft tissue disorders; E78.2 Mixed hyperlipidemia; R41.0 Disorientation, unspecified; E86.0 Dehydration; R91.8 Other nonspecific abnormal finding of lung field; Z66 Do not resuscitate; Z90.49 Acquired absence of other specified parts of digestive tract; Z87.891 Personal history of nicotine dependence
CPT/HCPCS: 36415; 70450; 71045; 71275; 73610; 80048; 80053; 81001; 82550; 83690; 83880; 84484; 85025; 85027; 85380; 85610; 85730; 87040; 93005; 93971; 96360; 96361; 96365; 96367; 96372; 96375; 96376; 97110; 97116; 97162; 97165; 97530; 97535; 99284; 99285; A9270; C9803; G0378; J0131; J0456; J0696; J1100; J1650; J2060; J7040; J7070; Q9967; U0003; U0005

== ENCOUNTER 2020-05-12 17:20 | HOS | payer OTHER, MEDICARE, SELFPAY ==
--- NOTE | 2020-05-12 18:24 | PC.NURSE ---
Pt just made hospice. Please see previous chart for admission.
[2020-05-12] MEDS: MORPHINE SULFATE INJ (*CRX) 50 MG in SODIUM CHLORIDE 0.9% IV 95 ML IV CONT (18:45)
--- NOTE | 2020-05-12 19:59 | PM.IMHP ---
H&P: HPI History of Present Illness Date/Time: 05/12/20 19:59 Chief Complaint: uncontrolled restlessness Narrative: Edi Hooks is a 74 year old male with Parkinson's disease who was admitted on May 02 with altered mental status. He was hypoxic and CTA of the chest revealed ground-glass opacities. COVID-19 swab was positive. He was treated with IV antibiotics, read as severe, dexamethasone, and oxygen. He remained confused and was not eating well. Review of Systems Review of Systems: ROS unobtainable: Yes unobtainable due to medical condition PMFSH Past Medical History Medical History Chicken pox Parkinson disease Pneumonia Screening PSA (prostate specific antigen) Surgical History Surgical History H/O right heart catheterization History of cholecystectomy Family History Family History Father , 68 Stomach cancer Mother , 90 No problems noted. Social History Social History (Updated 05/12/20 @ 20:01 by Darvin Bell MD) Smoking packs per day: 1.0 Smoking cigarettes per day: 20.0 Smoking status: Former smoker Tobacco type: cigarettes Second hand tobacco smoke exposure: No Smoking end date: 03/18/04 Alcohol intake: former Substance use: never Substance use type: does not use Gender identity (if verbalized by the patient): Male Spiritual care concerns: No Meds Home Medications and Allergies Home Medications Medication Instructions Recorded Confirmed Type albuterol sulfate 90 mcg/actuation See Rx Instructions .ROUTE .COMPLEX 04/18/20 05/01/20 History aerosol inhaler atorvastatin 10 mg tablet 10 mg PO DAILY 04/18/20 05/01/20 History carbidopa 25 mg-levodopa 100 mg 1 tablet PO TID 04/18/20 05/01/20 History tablet linaclotide 145 mcg capsule 145 mcg PO DAILY 04/18/20 05/01/20 History mesalamine 0.375 gram See Rx Instructions .ROUTE .COMPLEX 04/18/20 05/01/20 History capsule,extended release 24 hr Allergies Allergy/AdvReac Type Severity Reaction Status Date / Time Penicillins Allergy Intermediate UNKNOWN Verified 05/01/20 15:29 Exam Narrative: Exam Narrative: HEENT: PERRL, sclerae nonicteric, pharyngeal mucosa pink and intact NECK: No JVD CHEST: Coarse breath sounds bilaterally Normal effort. HEART: NL S1/S2, regular, no murmur ABDOMEN: BS hypoactive, soft, nontender, no mass, no bruits EXTREMITIES: No cyanosis, edema, or clubbing NEUROLOGIC: CN intact and symmetric to inspection. MUSCULOSKELETAL: Tone and strength symmetric. PSYCH: Alert. Oriented to person only. Intermittently restless with kicking of right leg until bed was repositioned. Assessment and Plan Assessment and plan (1) Palliative care by specialist: Code(s): Z51.5 - Encounter for palliative care Status: Acute Assessment and Plan: Meets general inpatient criteria due to uncontrolled restlessness and confusion requiring continuous IV narcotic and intermittent bolus IV benzodiazepine for control Morphine 0.5 milligrams/hour and 1 mg every 2 hours as needed Lorazepam 1 mg IV every 4 hours as needed Remainder of palliative regimen as ordered (2) Pneumonia due to COVID-19 virus: Code(s): U07.1 - COVID-19; J12.82 - Pneumonia due to coronavirus disease 2019 Status: Acute (3) Parkinson disease: Code(s): G20 - Parkinson's disease Status: Chronic (4) Chest mass: Code(s): R22.2 - Localized swelling, mass and lump, trunk Status: Acute (5) Hallucinations due to late onset dementia: Code(s): F03.90 - Unspecified dementia without behavioral disturbance; R44.3 - Hallucinations, unspecified Status: Acute (6) Acute confusion: Code(s): R41.0 - Disorientation, unspecified Status: Acute (7) Emphysema, unspecified:
[2020-05-13] MEDS: BISACODYL 10 MG SUPPOSITORY RECTAL (08:02)
[2020-05-13] MEDS: LORazepam INJ (*CRX) 2 MG/ML VIAL 1 MG IV PUSH (14:42)
[2020-05-13] MEDS: MORPHINE SULFATE INJ (*CRX) 50 MG in SODIUM CHLORIDE 0.9% IV 95 ML IV CONT (17:05)
--- NOTE | 2020-05-13 18:22 | PM.IMPN ---
Progress Note: A&P Assessment and Plan (1) Palliative care by specialist: Code(s): Z51.5 - Encounter for palliative care Status: Acute Assessment and Plan: Meets general inpatient criteria due to uncontrolled restlessness and confusion requiring continuous IV narcotic and intermittent bolus IV benzodiazepine for control Morphine 0.5 milligrams/hour and 1 mg every 2 hours as needed Lorazepam 1 mg IV every 4 hours as needed Remainder of palliative regimen as ordered (2) Pneumonia due to COVID-19 virus: Code(s): U07.1 - COVID-19; J12.82 - Pneumonia due to coronavirus disease 2019 Status: Acute (3) Parkinson disease: Code(s): G20 - Parkinson's disease Status: Chronic (4) Chest mass: Code(s): R22.2 - Localized swelling, mass and lump, trunk Status: Acute (5) Hallucinations due to late onset dementia: Code(s): F03.90 - Unspecified dementia without behavioral disturbance; R44.3 - Hallucinations, unspecified Status: Acute (6) Acute confusion: Code(s): R41.0 - Disorientation, unspecified Status: Acute (7) Emphysema, unspecified: Qualifiers: Emphysema type: unspecified Qualified Code(s): J43.9 - Emphysema, unspecified Code(s): J43.9 - Emphysema, unspecified Status: Acute Subjective Date/time seen: 05/13/20 18:22 Interval history: Admitted to inpatient hospice 05/12 due to late cx's of COVID-19, including encephalopathy and restlessness. 05/13: Much more comfortable today. No PO intake. Review of Systems Review of Systems: ROS unobtainable: Yes unobtainable due to medical condition Exam Narrative: Exam Narrative: HEENT: pharyngeal mucosa pink and intact NECK: No JVD CHEST: Coarse breath sounds bilaterally Normal effort. HEART: NL S1/S2, regular, no murmur ABDOMEN: BS hypoactive, soft, nontender, no mass, no bruits EXTREMITIES: No cyanosis, edema, or clubbing NEUROLOGIC: CN intact and symmetric to inspection. MUSCULOSKELETAL: Tone and strength symmetric. PSYCH: Sleeping and does not respond to verbal or tactile stimuli Objective Data Intake/Output Intake/Output: Intake & Output 05/10/20 05/11/20 05/12/20 05/13/20 23:59 23:59 23:59 23:59 Intake Total 78 Balance 78 Meds/Results Medications: Active Medications Generic Name Dose Route Start Last Admin Trade Name Freq PRN Reason Stop Dose Admin Artificial Tears 1 drop 05/12/20 18:00 Artificial Tears Op Soln 15 Ml Bottle EACH EYE BID PRN Dry Eye(s) Bisacodyl 10 mg 05/12/20 18:00 05/13/20 08:02 Bisacodyl 10 Mg Suppository RECTAL 10 mg QAM PRN Administration Constipation Glycopyrrolate 0.1 mg 05/12/20 18:00 Glycopyrrolate Inj (*Sp) 0.2 Mg/Ml Vial IV PUSH Q4H PRN Secretions Morphine Sulfate 50 mg/ Sodium 100 mls @ 1 mls/hr 05/12/20 18:00 05/13/20 17:05 Chloride IV CONT 0.5 mg/hr .Q24H SCOOBY 1 mls/hr Administration 0.5 MG/HR Lorazepam 1 mg 05/12/20 18:00 05/13/20 14:42 Lorazepam Inj (*Crx) 2 Mg/Ml Vial IV PUSH 1 mg Q4H PRN Administration AGITATION Morphine Sulfate 1 mg 05/12/20 18:00 Morphine Sulfate (*Crx) 2 Mg/Ml Inj IV PUSH Q2H PRN Pain Promethazine HCl 12.5 mg 05/12/20 18:00 Promethazine Hcl 25 Mg/Ml Ampul IV PUSH Q6H PRN Nausea And Vomiting
--- NOTE | 2020-05-14 14:22 | PM.IMPN ---
Progress Note: A&P Assessment and Plan (1) Palliative care by specialist: Code(s): Z51.5 - Encounter for palliative care Status: Acute Assessment and Plan: Meets general inpatient criteria due to uncontrolled restlessness and confusion requiring continuous IV narcotic and intermittent bolus IV benzodiazepine for control Morphine 0.5 milligrams/hour and 1 mg every 2 hours as needed Lorazepam 1 mg IV every 4 hours as needed Remainder of palliative regimen as ordered (2) Pneumonia due to COVID-19 virus: Code(s): U07.1 - COVID-19; J12.82 - Pneumonia due to coronavirus disease 2019 Status: Acute (3) Parkinson disease: Code(s): G20 - Parkinson's disease Status: Chronic (4) Chest mass: Code(s): R22.2 - Localized swelling, mass and lump, trunk Status: Acute (5) Hallucinations due to late onset dementia: Code(s): F03.90 - Unspecified dementia without behavioral disturbance; R44.3 - Hallucinations, unspecified Status: Acute (6) Acute confusion: Code(s): R41.0 - Disorientation, unspecified Status: Acute (7) Emphysema, unspecified: Qualifiers: Emphysema type: unspecified Qualified Code(s): J43.9 - Emphysema, unspecified Code(s): J43.9 - Emphysema, unspecified Status: Acute Subjective Date/time seen: 05/14/20 14:22 Interval history: Admitted to inpatient hospice 05/12 due to late cx's of COVID-19, including encephalopathy and restlessness. 05/14: Much more comfortable today. No PO intake. Review of Systems Review of Systems: ROS unobtainable: Yes unobtainable due to medical condition Exam Narrative: Exam Narrative: HEENT: pharyngeal mucosa pink and intact NECK: No JVD CHEST: Coarse breath sounds bilaterally Normal effort. HEART: NL S1/S2, regular, no murmur ABDOMEN: BS hypoactive, soft, nontender, no mass, no bruits EXTREMITIES: No cyanosis, edema, or clubbing NEUROLOGIC: CN intact and symmetric to inspection. MUSCULOSKELETAL: Tone and strength symmetric. PSYCH: Sleeping and does not respond to verbal or tactile stimuli Objective Data Intake/Output Intake/Output: Intake & Output 05/11/20 05/12/20 05/13/20 05/14/20 23:59 23:59 23:59 23:59 Intake Total 78 Balance 78 Meds/Results Medications: Active Medications Generic Name Dose Route Start Last Admin Trade Name Freq PRN Reason Stop Dose Admin Artificial Tears 1 drop 05/12/20 18:00 Artificial Tears Op Soln 15 Ml Bottle EACH EYE BID PRN Dry Eye(s) Bisacodyl 10 mg 05/12/20 18:00 05/13/20 08:02 Bisacodyl 10 Mg Suppository RECTAL 10 mg QAM PRN Administration Constipation Glycopyrrolate 0.1 mg 05/12/20 18:00 Glycopyrrolate Inj (*Sp) 0.2 Mg/Ml Vial IV PUSH Q4H PRN Secretions Morphine Sulfate 50 mg/ Sodium 100 mls @ 1 mls/hr 05/12/20 18:00 05/13/20 17:05 Chloride IV CONT 0.5 mg/hr .Q24H SCOOBY 1 mls/hr Administration 0.5 MG/HR Lorazepam 1 mg 05/12/20 18:00 05/13/20 14:42 Lorazepam Inj (*Crx) 2 Mg/Ml Vial IV PUSH 1 mg Q4H PRN Administration AGITATION Morphine Sulfate 1 mg 05/12/20 18:00 Morphine Sulfate (*Crx) 2 Mg/Ml Inj IV PUSH Q2H PRN Pain Promethazine HCl 12.5 mg 05/12/20 18:00 Promethazine Hcl 25 Mg/Ml Ampul IV PUSH Q6H PRN Nausea And Vomiting
[2020-05-14 15:18] VITALS: BP 119/68; PULSE 101; RESP 20; TEMP 36.2; O2SAT 93
[2020-05-14] MEDS: MORPHINE SULFATE INJ (*CRX) 50 MG in SODIUM CHLORIDE 0.9% IV 95 ML IV CONT (17:04)
[2020-05-15 06:50] VITALS: BP 118/87; PULSE 105; RESP 16; TEMP 36.4; O2SAT 81
[2020-05-15] MEDS: LORazepam INJ (*CRX) 2 MG/ML VIAL 1 MG IV PUSH (07:29)
--- NOTE | 2020-05-15 13:42 | PM.IMPN ---
Progress Note: A&P Assessment and Plan (1) Palliative care by specialist: Code(s): Z51.5 - Encounter for palliative care Status: Acute Assessment and Plan: Meets general inpatient criteria due to uncontrolled restlessness and confusion requiring continuous IV narcotic and intermittent bolus IV benzodiazepine for control Morphine 0.5 milligrams/hour and 1 mg every 2 hours as needed Lorazepam 1 mg IV every 4 hours as needed Remainder of palliative regimen as ordered (2) Pneumonia due to COVID-19 virus: Code(s): U07.1 - COVID-19; J12.82 - Pneumonia due to coronavirus disease 2019 Status: Acute (3) Parkinson disease: Code(s): G20 - Parkinson's disease Status: Chronic (4) Chest mass: Code(s): R22.2 - Localized swelling, mass and lump, trunk Status: Acute (5) Hallucinations due to late onset dementia: Code(s): F03.90 - Unspecified dementia without behavioral disturbance; R44.3 - Hallucinations, unspecified Status: Acute (6) Acute confusion: Code(s): R41.0 - Disorientation, unspecified Status: Acute (7) Emphysema, unspecified: Qualifiers: Emphysema type: unspecified Qualified Code(s): J43.9 - Emphysema, unspecified Code(s): J43.9 - Emphysema, unspecified Status: Acute Subjective Date/time seen: 05/15/20 13:42 Interval history: Admitted to inpatient hospice 05/12 due to late cx's of COVID-19, including encephalopathy and restlessness. 05/15: Sleeping all day. No PO intake. Review of Systems Review of Systems: ROS unobtainable: Yes unobtainable due to medical condition Exam Narrative: Exam Narrative: HEENT: pharyngeal mucosa pink and intact NECK: No JVD CHEST: Coarse breath sounds bilaterally Normal effort. HEART: NL S1/S2, regular, no murmur ABDOMEN: BS hypoactive, soft, nontender, no mass, no bruits EXTREMITIES: No cyanosis, edema, or clubbing NEUROLOGIC: CN intact and symmetric to inspection. MUSCULOSKELETAL: Tone and strength symmetric. PSYCH: Sleeping and does not respond to verbal or tactile stimuli Objective Data Vital Signs Vital Signs: Vital Signs - 24 hr 05/14/20 15:18 05/15/20 06:50 Temperature 97.2 F L 97.5 F L Pulse Rate 101 H 105 H Respiratory Rate 20 16 Blood Pressure 119/68 118/87 Pulse Oximetry 93 81 L Intake/Output Intake/Output: Intake & Output 05/12/20 05/13/20 05/14/20 05/15/20 23:59 23:59 23:59 23:59 Intake Total 78 100 Balance 78 100 Meds/Results Medications: Active Medications Generic Name Dose Route Start Last Admin Trade Name Freq PRN Reason Stop Dose Admin Artificial Tears 1 drop 05/12/20 18:00 Artificial Tears Op Soln 15 Ml Bottle EACH EYE BID PRN Dry Eye(s) Bisacodyl 10 mg 05/12/20 18:00 05/13/20 08:02 Bisacodyl 10 Mg Suppository RECTAL 10 mg QAM PRN Administration Constipation Glycopyrrolate 0.1 mg 05/12/20 18:00 Glycopyrrolate Inj (*Sp) 0.2 Mg/Ml Vial IV PUSH Q4H PRN Secretions Morphine Sulfate 50 mg/ Sodium 100 mls @ 1 mls/hr 05/12/20 18:00 05/14/20 17:04 Chloride IV CONT 0.5 mg/hr .Q24H SCOOBY 1 mls/hr Administration 0.5 MG/HR Lorazepam 1 mg 05/12/20 18:00 05/15/20 07:29 Lorazepam Inj (*Crx) 2 Mg/Ml Vial IV PUSH 1 mg Q4H PRN Administration AGITATION Morphine Sulfate 1 mg 05/12/20 18:00 Morphine Sulfate (*Crx) 2 Mg/Ml Inj IV PUSH Q2H PRN Pain Promethazine HCl 12.5 mg 05/12/20 18:00 Promethazine Hcl 25 Mg/Ml Ampul IV PUSH Q6H PRN Nausea And Vomiting
[2020-05-15 14:44] VITALS: BP 126/75; PULSE 104; RESP 18; TEMP 36.4; O2SAT 96
[2020-05-15] MEDS: MORPHINE SULFATE INJ (*CRX) 50 MG in SODIUM CHLORIDE 0.9% IV 95 ML IV CONT (17:21)
[2020-05-15 20:25] VITALS: BP 108/63; PULSE 109; RESP 12; TEMP 36.2; O2SAT 90
[2020-05-15] MEDS: MORPHINE SULFATE (*CRX) 2 MG/ML INJ 1 MG IV PUSH (21:31)
[2020-05-15] MEDS: GLYCOPYRROLATE INJ (*SP) 0.2 MG/ML VIAL 0.1 MG IV PUSH (21:32)
[2020-05-16] MEDS: BISACODYL 10 MG SUPPOSITORY RECTAL (05:53)
[2020-05-16 08:00] VITALS: BP 99/62; PULSE 102; RESP 20; TEMP 37.4; O2SAT 92
--- NOTE | 2020-05-16 17:28 | PM.IMPN ---
Progress Note: A&P Assessment and Plan (1) Palliative care by specialist: Code(s): Z51.5 - Encounter for palliative care Status: Acute Assessment and Plan: Meets general inpatient criteria due to uncontrolled restlessness and confusion requiring continuous IV narcotic and intermittent bolus IV benzodiazepine for control Morphine 0.5 milligrams/hour and 1 mg every 2 hours as needed Lorazepam 1 mg IV every 4 hours as needed Remainder of palliative regimen as ordered (2) Pneumonia due to COVID-19 virus: Code(s): U07.1 - COVID-19; J12.82 - Pneumonia due to coronavirus disease 2019 Status: Acute (3) Parkinson disease: Code(s): G20 - Parkinson's disease Status: Chronic (4) Chest mass: Code(s): R22.2 - Localized swelling, mass and lump, trunk Status: Acute (5) Hallucinations due to late onset dementia: Code(s): F03.90 - Unspecified dementia without behavioral disturbance; R44.3 - Hallucinations, unspecified Status: Acute (6) Acute confusion: Code(s): R41.0 - Disorientation, unspecified Status: Acute (7) Emphysema, unspecified: Qualifiers: Emphysema type: unspecified Qualified Code(s): J43.9 - Emphysema, unspecified Code(s): J43.9 - Emphysema, unspecified Status: Acute Subjective Date/time seen: 05/16/20 17:28 Interval history: Admitted to inpatient hospice 05/12 due to late cx's of COVID-19, including encephalopathy and restlessness. 05/16: Sleeping all day. No PO intake. Review of Systems Review of Systems: ROS unobtainable: Yes unobtainable due to medical condition Exam Narrative: Exam Narrative: HEENT: pharyngeal mucosa pink and intact NECK: No JVD CHEST: Coarse breath sounds bilaterally Normal effort. HEART: NL S1/S2, regular, no murmur ABDOMEN: BS hypoactive, soft, nontender, no mass, no bruits EXTREMITIES: No cyanosis, edema, or clubbing NEUROLOGIC: CN intact and symmetric to inspection. MUSCULOSKELETAL: Tone and strength symmetric. PSYCH: Sleeping and does not respond to verbal or tactile stimuli Objective Data Vital Signs Vital Signs: Vital Signs - 24 hr 05/15/20 20:25 05/16/20 08:00 Temperature 97.1 F L 99.3 F Pulse Rate 109 H 102 H Respiratory Rate 12 20 Blood Pressure 108/63 99/62 L Pulse Oximetry 90 92 Intake/Output Intake/Output: Intake & Output 05/13/20 05/14/20 05/15/20 05/16/20 23:59 23:59 23:59 23:59 Intake Total 78 100 100 Balance 78 100 100 Meds/Results Medications: Active Medications Generic Name Dose Route Start Last Admin Trade Name Freq PRN Reason Stop Dose Admin Artificial Tears 1 drop 05/12/20 18:00 05/15/20 21:34 Artificial Tears Op Soln 15 Ml Bottle EACH EYE 1 drop BID PRN Administration Dry Eye(s) Bisacodyl 10 mg 05/12/20 18:00 05/16/20 05:53 Bisacodyl 10 Mg Suppository RECTAL 10 mg QAM PRN Administration Constipation Glycopyrrolate 0.1 mg 05/12/20 18:00 05/15/20 21:32 Glycopyrrolate Inj (*Sp) 0.2 Mg/Ml Vial IV PUSH 0.1 mg Q4H PRN Administration Secretions Morphine Sulfate 50 mg/ Sodium 100 mls @ 1 mls/hr 05/12/20 18:00 05/15/20 17:21 Chloride IV CONT 0.5 mg/hr .Q24H SCOOBY 1 mls/hr Administration 0.5 MG/HR Lorazepam 1 mg 05/12/20 18:00 05/15/20 07:29 Lorazepam Inj (*Crx) 2 Mg/Ml Vial IV PUSH 1 mg Q4H PRN Administration AGITATION Morphine Sulfate 1 mg 05/12/20 18:00 05/15/20 21:31 Morphine Sulfate (*Crx) 2 Mg/Ml Inj IV PUSH 1 mg Q2H PRN Administration Pain Promethazine HCl 12.5 mg 05/12/20 18:00 Promethazine Hcl 25 Mg/Ml Ampul IV PUSH Q6H PRN Nausea And Vomiting
[2020-05-16] MEDS: MORPHINE SULFATE INJ (*CRX) 50 MG in SODIUM CHLORIDE 0.9% IV 95 ML IV CONT (17:37)
[2020-05-16 20:38] VITALS: BP 105/69; PULSE 99; RESP 14; TEMP 36.3; O2SAT 91
[2020-05-17] MEDS: BISACODYL 10 MG SUPPOSITORY RECTAL (06:05)
[2020-05-17 14:02] VITALS: BP 80/48; PULSE 92; RESP 12; TEMP 36; O2SAT 72
[2020-05-17] MEDS: MORPHINE SULFATE INJ (*CRX) 50 MG in SODIUM CHLORIDE 0.9% IV 95 ML IV CONT (17:55)
[2020-05-17 22:00] VITALS: BP 69/43; PULSE 92; RESP 8; TEMP 37.3
--- NOTE | 2020-05-18 02:00 | PC.NURSE ---
at 01:40 pt stopped breathing and had no pulse. Confirmed with Russell Patel RN. Informed Allyson Ascencio, home housekeeper. Called [facility] hospice to inform them, and called Sheila to let her know of her husbands change in status. Received home information from her: [facility] in [place]. Waiting for pin inserter regulator and [facility] to follow up. -SHANI RN
--- NOTE | 2020-05-23 20:50 | PM.DDS ---
Discharge Sum: Prov Provider Primary care physician: Brooks Dickson MD Admitting provider: Darvin Bell MD Discharge Sum: Diag Contributing Factors (1) Pneumonia due to COVID-19 virus: (2) Parkinson disease: (3) Chest mass: (4) Hallucinations due to late onset dementia: (5) Acute confusion: (6) Emphysema, unspecified: Discharge Sum: Summary Date and Time Date of admission: 05/12/20 17:20 Summary Details: Mr. Hooks was admitted from acute care to inpatient hospice after failing to improve on treatment for COVID-19 pneumonia. He was confused and restless and short of breath. Medications were titrated to comfort. He peacefully. Additional Data Attending physician: Darvin Bell MD
== END 2020-05-18 01:40 | disposition expired | DRG 951 ==
PROVIDERS: Admitting Provider Internal Medicine; PCP Emergency Medicine; Visit Provider Internal Medicine
DX: Z51.5 Encounter for palliative care (principal); J12.82 Pneumonia due to coronavirus disease 2019; U07.1 COVID-19; R44.3 Hallucinations, unspecified; F02.80 Dementia in other diseases classified elsewhere, unspecified severity, without behavioral disturbance, psychotic disturbance, mood disturbance, and anxiety; G20 Parkinson's disease; R22.2 Localized swelling, mass and lump, trunk; J43.9 Emphysema, unspecified; R41.0 Disorientation, unspecified
CPT/HCPCS: A9270; J2060; J2270